=== PATIENT | female | born 1965 | race Two or more races ===

== ENCOUNTER 2023-06-28 22:47 | Inpatient (IN) ==
--- NOTE | 2023-06-28 23:04 | Emergency Department Note ---
History of Present Illness General Chief complaint: Knee Injury/Pain Stated complaint: R KNEE PAIN, DIZZINESS WHEN STANDING Time Seen by Provider: 06/28/23 22:53 History of Present Illness This 57-year-old female who states she is healthy with no active medical problems presents the ER complaining of fever, chills and right knee effusion. She states she has had the knee drained a year ago. It has been swollen for quite some time. She comes in now as the knee is more painful and she has a low-grade fever. Patient denies chest pain, dyspnea, cough, congestion, flulike illness, abdominal pain, vomiting, diarrhea, direct trauma, tick bites. She states she takes no active medications. [email or web address]. Home Medications Medication Instructions Recorded Confirmed Type No Known Home Medications 06/29/23 06/29/23 History Allergies Allergy/AdvReac Type Severity Reaction Status Date / Time No Known Allergies Allergy Unknown Verified 06/29/23 01:32 Past Med/Surg History Social History Smoking Status: Never smoker Hx Alcohol Use: No Hx Substance Use: No Communication Ability: Effective Communication Tools: Language Line Requirements Analyst Requirements Analyst Required: Yes Beliefs That Will Affect Care: Yazdanism Yazdanism Beliefs: Gnosticist Current Living Situation: Family Other Information That Helps Us Care for You: No Feels Safe at Home: Yes Safety Concerns: Feels Safe At This Time Assistive Devices: Crutches Review of Systems A total of 10 systems reviewed and were otherwise negative Physical Exam Vital Signs Vital Signs - 24 hr 06/28/23 22:41 06/28/23 22:41 06/28/23 22:59 Temperature 37.3 C Temperature Source Oral Pulse Rate 83 Pulse Rate [Apical] Pulse Rate from SpO2 Sensor Respiratory Rate 16 Respiratory Effort / Characteristics Non-Labored Non-Labored Respiratory Depth Normal Normal Respiratory Pattern Blood Pressure 119/78 Blood Pressure [Right Arm] Blood Pressure Mean 91 Blood Pressure Mean [Right Arm] Pulse Oximetry 98 98 Oxygen Delivery Method Room Air Room Air Oxygen Flow Rate Sepsis Recent Fever Within 48 Hours No Sepsis New/Unexplained Change in Mental Status No Sepsis Action Taken by Nursing No Action Required 06/28/23 22:59 06/28/23 23:00 06/28/23 23:00 Temperature Temperature Source Pulse Rate 88 83 Pulse Rate [Apical] Pulse Rate from SpO2 Sensor 88 83 Respiratory Rate 18 16 Respiratory Effort / Characteristics Respiratory Depth Respiratory Pattern Blood Pressure 119/78 Blood Pressure [Right Arm] Blood Pressure Mean 91 Blood Pressure Mean [Right Arm] Pulse Oximetry 96 97 Oxygen Delivery Method Oxygen Flow Rate Sepsis Recent Fever Within 48 Hours Sepsis New/Unexplained Change in Mental Status Sepsis Action Taken by Nursing 06/28/23 23:01 06/28/23 23:56 06/28/23 23:56 Temperature Temperature Source Pulse Rate 89 82 Pulse Rate [Apical] Pulse Rate from SpO2 Sensor 82 Respiratory Rate 16 Respiratory Effort / Characteristics Respiratory Depth Respiratory Pattern Blood Pressure 117/80 Blood Pressure [Right Arm] Blood Pressure Mean 97 Blood Pressure Mean [Right Arm] Pulse Oximetry 96 Oxygen Delivery Method Oxygen Flow Rate Sepsis Recent Fever Within 48 Hours Sepsis New/Unexplained Change in Mental Status Sepsis Action Taken by Nursing 06/29/23 00:00 06/29/23 00:00 06/29/23 00:14 Temperature Temperature Source Pulse Rate 82 Pulse Rate [Apical] Pulse Rate from SpO2 Sensor 81 Respiratory Rate 24 Respiratory Effort / Characteristics Non-Labored Respiratory Depth Normal Respiratory Pattern Blood Pressure 118/75 Blood Pressure [Right Arm] Blood Pressure Mean 89 Blood Pressure Mean [Right Arm] Pulse Oximetry 96 Oxygen Delivery Method Oxygen Flow Rate Sepsis Recent Fever Within 48 Hours Sepsis New/Unexplained Change in Mental Status Sepsis Action Taken by Nursing 06/29/23 01:00 06/29/23 01:45 06/29/23 01:45 Temperature Temperature Source Pulse Rate 60 Pulse Rate [Apical] 65 Pulse Rate from SpO2 Sensor 60 Respiratory Rate 16 23 Respiratory Effort / Characteristics Non-Labored Spontaneous Respiratory Depth Normal Respiratory Pattern Regular Blood Pressure 117/75 Blood Pressure [Right Arm] 117/75 Blood Pressure Mean 90 Blood Pressure Mean [Right Arm] 89 Pulse Oximetry 92 96 Oxygen Delivery Method Nasal Cannula Nasal Cannula Oxygen Flow Rate 2 2 Sepsis Recent Fever Within 48 Hours Sepsis New/Unexplained Change in Mental Status Sepsis Action Taken by Nursing 06/29/23 01:45 06/29/23 01:50 06/29/23 02:00 Temperature Temperature Source Pulse Rate 63 62 Pulse Rate [Apical] Pulse Rate from SpO2 Sensor 63 Respiratory Rate 14 Respiratory Effort / Characteristics Respiratory Depth Respiratory Pattern Blood Pressure 137/85 Blood Pressure [Right Arm] Blood Pressure Mean 92 Blood Pressure Mean [Right Arm] Pulse Oximetry 96 Oxygen Delivery Method Oxygen Flow Rate Sepsis Recent Fever Within 48 Hours Sepsis New/Unexplained Change in Mental Status Sepsis Action Taken by Nursing 06/29/23 02:00 06/29/23 03:00 06/29/23 03:15 Temperature Temperature Source Pulse Rate 77 76 Pulse Rate [Apical] Pulse Rate from SpO2 Sensor 79 76 Respiratory Rate 21 14 Respiratory Effort / Characteristics Non-Labored Respiratory Depth Normal Respiratory Pattern Blood Pressure Blood Pressure [Right Arm] Blood Pressure Mean Blood Pressure Mean [Right Arm] Pulse Oximetry 98 96 Oxygen Delivery Method Oxygen Flow Rate Sepsis Recent Fever Within 48 Hours Sepsis New/Unexplained Change in Mental Status Sepsis Action Taken by Nursing 06/29/23 04:00 06/29/23 04:00 06/29/23 04:00 Temperature Temperature Source Pulse Rate 72 Pulse Rate [Apical] Pulse Rate from SpO2 Sensor 72 Respiratory Rate 14 Respiratory Effort / Characteristics Non-Labored Respiratory Depth Normal Respiratory Pattern Blood Pressure 110/74 Blood Pressure [Right Arm] Blood Pressure Mean 92 Blood Pressure Mean [Right Arm] Pulse Oximetry 97 Oxygen Delivery Method Oxygen Flow Rate Sepsis Recent Fever Within 48 Hours Sepsis New/Unexplained Change in Mental Status Sepsis Action Taken by Nursing 06/29/23 04:25 06/29/23 04:26 Temperature Temperature Source Pulse Rate Pulse Rate [Apical] Pulse Rate from SpO2 Sensor Respiratory Rate Respiratory Effort / Characteristics Non-Labored Non-Labored Respiratory Depth Normal Normal Respiratory Pattern Blood Pressure Blood Pressure [Right Arm] Blood Pressure Mean Blood Pressure Mean [Right Arm] Pulse Oximetry Oxygen Delivery Method Oxygen Flow Rate Sepsis Recent Fever Within 48 Hours Sepsis New/Unexplained Change in Mental Status Sepsis Action Taken by Nursing VITALS: Vitals are noted on the nurse's note and reviewed by myself. Vital signs stable. GENERAL: Pleasant female, in no acute distress, nondiaphoretic, well-developed well-nourished. SKIN: Capillary reflex less than 2 seconds. HEENT: Normocephalic. PERRLA. EOMI. Nares patent. Mucous membranes moist. Neck is supple without nuchal rigidity. HEART: Regular rate and rhythm LUNGS: Clear to auscultation bilaterally without wheezes, rales or rhonchi. No retractions or accessory muscle use. ABDOMEN: Positive bowel sounds x 4. Normal tympanic percussion. Soft, nontender, without masses or organomegaly. Senior sign negative. No guarding or rebound tenderness. no CVA tenderness MUSCULOSKELETAL: No gross musculoskeletal defects. Right knee with effusion present with no signs of a septic joint. Increased pain with range of motion. No erythema. Pedal pulses +2 equal present bilaterally. NEURO: Patient was alert and oriented to person place and time. No focal neurological deficits. Procedures Joint Aspiration/Injection Joint Asp./Inject. 1: Time Out Performed: Yes Side of body: right Joint Aspirated: knee Ultrasound Guidance: No Skin Prep: Povidone-Iodine1% Local Anesthetic: lidocaine 1% Amount of anesthesia used (mL): 5 Needle Size Used: 18G Fluid Obtained: clear Total fluid obtained (mL): 120 Patient Tolerated Procedure: well and no complications Complications: none Course Administered Medications Discontinued Medications Sodium Chloride (Nss) 1,000 mls @ 999 mls/hr IV .Q1H1M JOYCE Stop: 06/29/23 00:00 Last Infusion: 06/29/23 00:16 Dose: Infused Documented By: Admin: 06/28/23 23:15 Dose: 999 mls/hr Documented By: LOPEZ Acetaminophen (Ofirmev) 1,000 mg in 100 mls @ 400 mls/hr IV NOW STA Stop: 06/28/23 23:13 Last Infusion: 06/28/23 23:30 Dose: Infused Documented By: Admin: 06/28/23 23:15 Dose: 400 mls/hr Documented By: LOPEZ Lidocaine HCl (Lidocaine 1% Local 20 Ml Vial) 5 ml INFIL NOW ONE Stop: 06/28/23 23:00 Last Admin: 06/28/23 23:53 Dose: 5 ml Documented By: LOPEZ Morphine Sulfate (Morphine Sulfate 4 Mg/Ml 1 Ml Carp\Vial) Confirm Administered Dose 4 mg .ROUTE .STK-MED ONE Stop: 06/28/23 23:50 Last Admin: 06/28/23 23:54 Dose: 4 mg Documented By: LOPEZ Morphine Sulfate (Morphine Sulfate 4 Mg/Ml 1 Ml Carp\Vial) 4 mg IV NOW STA Stop: 06/29/23 00:10 Last Admin: 06/29/23 00:20 Dose: Not Given Documented By: LOPEZ Morphine Sulfate (Morphine Sulfate 4 Mg/Ml 1 Ml Carp\Vial) 4 mg IV NOW STA Stop: 06/29/23 01:29 Last Admin: 06/29/23 01:36 Dose: 4 mg Documented By: LOPEZ Ondansetron HCl (Ondansetron Inj 2 Mg/Ml 2 Ml Vial) 4 mg IV NOW STA Stop: 06/29/23 00:10 Last Admin: 06/29/23 00:25 Dose: 4 mg Documented By: LOPEZ Medical Decision Making Medical Records Attestation: I reviewed the patient's medical records. Home Medications Current Medication List: was personally reviewed by me Laboratory Data Attestation: I reviewed the patient's lab results. 06/28/23 23:00 06/28/23 23:00 Lab Results 06/28/23 06/28/23 06/29/23 Range/Units 23:00 23:31 00:04 WBC 9.81 (4.8-10.8) K/ul RBC 4.81 (4.20-5.40) M/uL Hgb 13.9 (12.0-16.0) g/dl Hct 40.6 (37.0-47.0) % MCV 84.4 (80.0-100.0) fL MCH 28.9 (25.0-34.0) pg MCHC 34.2 (32.0-36.0) g/dL RDW Std Deviation 38.4 (36.4-46.3) fL RDW Coeff of Lisa 12.4 (11.5-14.5) % Plt Count 231 (130-400) K/uL MPV 10.6 (9.4-12.4) fL Immature Gran % (Auto) 0.1 % Neut % (Auto) 76.5 % Lymph % (Auto) 18.1 % Nobles % (Auto) 4.5 % Eos % (Auto) 0.2 % Baso % (Auto) 0.6 % Neut # (Auto) 7.50 H (1.40-6.50) K/uL Lymph # (Auto) 1.78 (1.20-3.40) K/uL Nobles # (Auto) 0.44 (0.11-0.59) K/uL Eos # (Auto) 0.02 (0.00-0.50) K/uL Baso # (Auto) 0.06 (0.00-0.20) K/uL Immature Gran # (Auto) 0.01 (0.01-0.20) K/uL ESR 21 (0-30) mm/hr Sodium 136 (136-145) mmol/L Potassium 3.6 (3.5-5.1) mmol/L Chloride 104 (98-107) mmol/L Carbon Dioxide 26 (21-32) mmol/L Anion Gap 6 (3-11) BUN 20 (6-23) mg/dl Creatinine 0.67 (0.6-1.2) mg/dl Est Cr Clr Drug Dosing 110.8 ml/min Est GFR ( Amer) 113.9 ml/min Est GFR (Non-Af Amer) 98.3 ml/min BUN/Creatinine Ratio 29.9 H (10-20) Glucose 121 H (70-99(Fasting)) mg/dl Lactate 0.8 (0.4-2.0) mmol/L Calcium 9.9 (8.6-10.3) mg/dl Magnesium 2.0 (1.7-2.4) mg/dl Total Bilirubin 0.6 (0.2-1.0) mg/dl Direct Bilirubin 0.1 (0-0.2) mg/dl AST 13 (13-39) U/L ALT 10 (7-52) U/L Alkaline Phosphatase 47 (34-104) U/L Troponin I High Sens < 2.3 (0-14) pg/ml C-Reactive Protein 0.53 H (0-0.5) mg/dl Total Protein 7.0 (6.0-8.3) gm/dl Albumin 4.1 (3.4-5.0) gm/dl Procalcitonin < 0.02 (0-0.5) ng/ml Fluid Comment Synovial Source Knee Synovial Color Straw Synovial Appearance Hazy Synovial WBC (Auto) 15059 H (0-200) /ul Synovial RBC (Auto) < 2000 /uL Synovial Polynuclear % 93.6 % Synovial Mononuclear % 6.4 % Synovial Crystals Lyme Disease Screen Negative (Negative) Imaging Data Attestation: I personally reviewed and interpreted this imaging study as follows: MDM Narrative Prior records/ancillary studies reviewed. Triage Nursing notes reviewed. Additional history obtained from family. The patient's history was concerning for knee effusion with fever. Differential diagnosis: Etiologies such as Lyme's, osteoarthritis of the knee, septic knee, gout, pseudogout, viral syndrome, otitis, pharyngitis, pneumonia, influenza, meningitis, urinary tract infection, sepsis, bacteremia, as well as others were entertained. Physical examination: As above ER treatment provided: An order was placed for continuous cardiac monitoring. The monitor shows a rate of 60-100 with a sinus rhythm per my interpretation. IV fluids, Tylenol On reassessment the patient felt better. Diagnostics interpreted by me: ECG: Ordered for weakness EKG: Normal sinus, normal intervals, no acute ST-T wave changes, impression normal sinus rhythm independent interpreted by myself The labs Independently Interpreted by myself revealed no organisms on Gram stain. Synovial fluid analysis was reviewed Blood cultures pending No worrisome leukocytosis Imaging studies: Knee x-ray with no acute fracture or dislocation. Effusion present per my independent interpretation Chest x-ray with no acute consolidation, pneumothorax or free air per my independent interpretation Consultation: A consultation was placed with orthopedics, Dr. Huerta. The case was discussed and diagnostics were reviewed. He recommends patient staying n.p.o. and till he sees the patient in the morning. He then asked to have pathology come in and read the crystal analysis on the patient. Pathology was consulted and did read the crystal analysis per request of orthopedics. Medicine is consulted case discussed. Patient be admitted to the medical service. The patient was evaluated in the ER for further treatment. This appears to be consistent with knee effusion with concerns for prior gout or pseudogout. Patient still with severe amount of pain. This is recurrent. Patient said the knee drained twice now. No overt signs of a septic joint. Knee Markell wrap was placed and neurovascular status was intact after placement as intact. Medicine was consulted along with orthopedics. She will be admitted to the medical service for further evaluation and workup as she was still moderate amount of pain. By the evaluation outlined above emergent etiologies such as otitis, pharyngitis, pneumonia, meningitis, urinary tract infection, sepsis, bacteremia, as well as others were deemed relatively unlikely. The pt informed about the findings as listed above. All questions were answered and pleased with the treatment. The chart was completed utilizing [employer] Speech voice recognition software. Grammatical errors, random word insertions, pronoun errors, and incomplete sentences are an occassional consequence of this system due to software limitations, ambient noise, and hardware issues. Any formal questions or concerns about the content, text, or information contained within the body of this dictation should be directly addressed to the physician chemistry research assistant for clarification. Impression & Plan Effusion of right knee Discharge Plan Visit Data Chief Complaint: Knee Injury/Pain Stated Complaint: R KNEE PAIN, DIZZINESS WHEN STANDING ED Provider: Francine Craven ED Midlevel Provider: Racquel Plata Discharge Problem: Effusion of right knee Patient Disposition: Being Evaluated by Hospitalist Condition: Good Discharge Instructions Krames/Other Patient Handouts: ED Knee Effusion Activity Restrictions/Additional Instructions: DO NOT drive, drink alcohol, operate machinery, or perform dangerous activities today. You were given medications in the ER that can affect your ability to safely function or operate a vehicle. Oxycodone (OxyIR) 5mg: Take 1 pill every four hours for breakthrough pain. Avoid alcohol, operating machinery or dangerous equipment, working on ladders or roofs, DRIVING, or situations where being under the influence may be dangerous. It is recommended to use an [id number] stool softener such as Colace, 100mg twice daily while taking this medication to avoid constipation. Ibuprofen(Motrin, Advil) may be used for fever or pain. Use 600mg every six hours as needed. Take with food. Avoid using more than 2400mg in a 24 hour period. Do not use 2400mg per day for more than three consecutive days without physician direction. Prolonged inappropriate use can lead to stomach upset or ulcers. This medication can be taken if you need to drive, work, or perform activities which may be dangerous when taking narcotic pain medication. (AND/OR) Acetaminophen(Tylenol) may be used for fever or pain. Use 1000mg every six hours as needed. Avoid using more than 3000mg in a 24 hour period. This medication can be taken if you need to drive, work, or perform activities which may be dangerous when taking narcotic pain medication. Wearing the Markell wrap until cleared by orthopedics. Do not put so tight they cannot feel your toes. Use the crutches as instructed. Rest and elevate your injury. Continue current medications. Return to the ER immediately for any numbness, tingling, severe pain, extreme swelling in the extremity or as needed. Call your Orthopedics tomorrow to arrange follow up for your injury. Forms Stand Alone Forms: Work/School Release (ED), Important Visit Information Prescriptions Prescriptions: No Action No Known Home Medications Referrals Referrals: Nickie Victor [Outside Practitioners] - Tray Lyle MD [Physician] -
[2023-06-28] MEDS: ACETAMINOPHEN 1,000 MG/100 ML VIAL IV STA (23:15)
[2023-06-28] MEDS: SODIUM CHLORIDE 0.9% 1,000 ML IV SCH (23:15)
[2023-06-28 23:35] LABS: Basophils # (auto) 0.06 K/uL (0.00-0.20); Basophils % (auto) 0.6 %; Eosinophils # (auto) 0.02 K/uL (0.00-0.50); Eosinophils % (auto) 0.2 %; Hematocrit (blood only) 40.6 % (37.0-47.0); Hemoglobin 13.9 g/dl (12.0-16.0); Immature Granulocytes # (auto) 0.01 K/uL (0.01-0.20); Immature Granulocytes % (auto) 0.1 %; Lymphocytes # (auto) 1.78 K/uL (1.20-3.40); Lymphocytes % (auto) 18.1 %; Mean Corpuscular Hemoglobin 28.9 pg (25.0-34.0); Mean Corpuscular Hgb Conc 34.2 g/dL (32.0-36.0); Mean Corpuscular Volume 84.4 fL (80.0-100.0); Mean Platelet Volume 10.6 fL (9.4-12.4); Monocytes # (auto) 0.44 K/uL (0.11-0.59); Monocytes % (auto) 4.5 %; Neutrophils % (auto) 76.5 %; Platelet Count 231 K/uL (130-400); RDW Coefficient of Variation 12.4 % (11.5-14.5); RDW Standard Deviation 38.4 fL (36.4-46.3); Red Blood Count 4.81 M/uL (4.20-5.40); White Blood Count 9.81 K/ul (4.8-10.8)
[2023-06-28 23:51] LABS: Alanine Aminotransferase 10 U/L (7-52); Albumin Level 4.1 gm/dl (3.4-5.0); Alkaline Phosphatase 47 U/L (34-104); Anion Gap 6 (3-11); Aspartate Aminotransferase 13 U/L (13-39); BUN Creatinine Ratio 29.9 (10-20); Bilirubin Direct 0.1 mg/dl (0-0.2); Bilirubin,Total 0.6 mg/dl (0.2-1.0); Blood Urea Nitrogen 20 mg/dl (6-23); Calcium 9.9 mg/dl (8.6-10.3); Carbon Dioxide 26 mmol/L (21-32); Chloride 104 mmol/L (98-107); Creatinine Clr Calc Pharmacy 110.8 ml/min; Est GFR (African American) 113.9 ml/min; Est GFR (Non-African American) 98.3 ml/min; Glucose 121 mg/dl (70-99(Fasting)); Potassium 3.6 mmol/L (3.5-5.1); Sodium 136 mmol/L (136-145)
[2023-06-28] MEDS: LIDOCAINE 1% LOCAL 20 ML VIAL INFIL ONE (23:53)
[2023-06-28] MEDS: MoRPHine SULFATE 4 MG/ML 1 ML CARP\\VIAL ONE (23:54)
[2023-06-28 23:56] LABS: Troponin I High Sensitivity < 2.3 pg/ml (0-14)
[2023-06-29] MEDS: MoRPHine SULFATE 4 MG/ML 1 ML CARP\\VIAL IV STA ×2 (00:20→01:36)
[2023-06-29 00:22] LABS: Procalcitonin < 0.02 ng/ml (0-0.5)
[2023-06-29] MEDS: ONDANSETRON INJ 2 MG/ML 2 ML VIAL IV STA (00:25)
[2023-06-29 00:48] LABS: Lyme Screen Rflx Confirmation Negative (Negative)
[2023-06-29 00:57] LABS: Appearance Synovial Fluid Hazy; Color Synovial Fluid Straw; Mononuclear WBC Synovial 6.4 %; Polynuclear WBC Synovial 93.6 %; RBC Synovial Fluid Auto < 2000 /uL; Source Synovial Fluid Knee; WBC Synovial Fluid Auto 24498 /ul (0-200)
[2023-06-29 01:35] LABS: C Reactive Protein 0.53 mg/dl (0-0.5)
--- NOTE | 2023-06-29 05:14 | History & Physical Report ---
Date of Service June 29, 2023 Assessment & Plan (1) Effusion of right knee: Plan: 57-year-old female with past med history significant for prediabetes, seasonal allergic rhinitis, history of COVID presents with right knee pain and swelling. Patient's states having swelling in the right knee for some time and pain for some time but it got worse. She is fasting for Ramadan. She was feeling dizzy. She was having low-grade fever and chills. Not feeling well. A lot of pain. Hemodynamics are okay. Denies any headache. No runny nose or sore throat. No cough. No chest pain or shortness of breath. No nausea. No abdominal pain. Normal bowel and bladder movements. Right knee pain Knee effusion S/p arthrocentesis by ER synovial fluid WBC 24 K Infectious versus inflammatory IV Rocephin N.p.o., IV Dilaudid as needed, IV fluids Ortho consult Prediabetes Will follow HbA1c DVT prophylaxis SCD's on left lower extremity. Lovenox or heparin subcu after seen by Ortho History of Present Illness Chief Complaint: Right knee pain Primary Care Provider: Nusrat Floyd, 57-year-old female with past med history significant for prediabetes, seasonal allergic rhinitis, history of COVID presents with right knee pain and swelling. Patient's states having swelling in the right knee for some time and pain for some time but it got worse. She is fasting for Ramadan. She was feeling dizzy. She was having low-grade fever and chills. Not feeling well. A lot of pain. Hemodynamics are okay. Denies any headache. No runny nose or sore throat. No cough. No chest pain or shortness of breath. No nausea. No abdominal pain. Normal bowel and bladder movements. Past medical history. As mentioned above Past surgical history. Biopsy of lymph node upper jaw. Vein ablation extremity Social history. . No smoking. No alcohol use. No drug use. Family history. Brother had coronary disease. Hypertension. Allergies Allergy/AdvReac Type Severity Reaction Status Date / Time No Known Allergies Allergy Unknown Verified 06/29/23 01:32 Home Medications Medication Instructions Recorded Confirmed Type No Known Home Medications 06/29/23 06/29/23 History Past Med/Surg History Social History Smoking Status: Never smoker Hx Alcohol Use: No Hx Substance Use: No Communication Ability: Effective Communication Tools: Language Line Scales Inspector Scales Inspector Required: Yes Beliefs That Will Affect Care: Caodaism Caodaism Beliefs: Nondenominational Current Living Situation: Family Other Information That Helps Us Care for You: No Feels Safe at Home: Yes Safety Concerns: Feels Safe At This Time Assistive Devices: Crutches Review of Systems Review of Systems: All systems reviewed & are unremarkable except as noted in HPI & below Physical Exam Physical Exam: General- Not in distress Head- atraumatic Eyes- PERRL. ENT- oropharynx clear Neck- supple, no JVD. Lungs- clear to auscultation no wheezing or crackles. Heart- regular rhythm; no murmur, no gallop. Abdomen- normal bowel sounds, soft, nontender, no distension Extremities- Right knee in dressing. Neuro- alert, oriented PERRL, no facial palsy; no dysarthria; Results & Data Results & Data Vital Signs (Past 12 Hours) Vital Signs Temp Pulse Pulse Resp BP BP Pulse Ox 06/29/23 04:00 110/74 06/29/23 04:00 72 14 97 06/29/23 03:00 76 14 96 06/29/23 02:00 77 21 98 06/29/23 02:00 137/85 06/29/23 01:50 62 06/29/23 01:45 63 14 96 06/29/23 01:45 117/75 06/29/23 01:45 65 23 117/75 96 06/29/23 01:00 60 16 92 06/29/23 00:00 118/75 06/29/23 00:00 82 24 96 06/28/23 23:56 82 16 96 06/28/23 23:56 117/80 06/28/23 23:01 89 06/28/23 23:00 119/78 06/28/23 23:00 83 16 97 06/28/23 22:59 88 18 96 06/28/23 22:59 98 06/28/23 22:41 37.3 C 83 16 119/78 98 O2 Del Method O2 Flow Rate 06/29/23 04:00 06/29/23 04:00 06/29/23 03:00 06/29/23 02:00 06/29/23 02:00 06/29/23 01:50 06/29/23 01:45 06/29/23 01:45 Nasal Cannula 2 06/29/23 01:45 Nasal Cannula 2 06/29/23 01:00 06/29/23 00:00 06/29/23 00:00 06/28/23 23:56 06/28/23 23:56 06/28/23 23:01 06/28/23 23:00 06/28/23 23:00 06/28/23 22:59 06/28/23 22:59 Room Air 06/28/23 22:41 Room Air Diagnostic Findings Laboratory Results WBC 9.81 K/ul (4.8-10.8) 06/28/23 23:00 RBC 4.81 M/uL (4.20-5.40) 06/28/23 23:00 Hgb 13.9 g/dl (12.0-16.0) 06/28/23 23:00 Hct 40.6 % (37.0-47.0) 06/28/23 23:00 MCV 84.4 fL (80.0-100.0) 06/28/23 23:00 MCH 28.9 pg (25.0-34.0) 06/28/23 23:00 MCHC 34.2 g/dL (32.0-36.0) 06/28/23 23:00 RDW Std Deviation 38.4 fL (36.4-46.3) 06/28/23 23:00 RDW Coeff of Lisa 12.4 % (11.5-14.5) 06/28/23 23:00 Plt Count 231 K/uL (130-400) 06/28/23 23:00 MPV 10.6 fL (9.4-12.4) 06/28/23 23:00 Immature Gran % (Auto) 0.1 % 06/28/23 23:00 Neut % (Auto) 76.5 % 06/28/23 23:00 Lymph % (Auto) 18.1 % 06/28/23 23:00 [place] % (Auto) 4.5 % 06/28/23 23:00 Eos % (Auto) 0.2 % 06/28/23 23:00 Baso % (Auto) 0.6 % 06/28/23 23:00 Neut # (Auto) 7.50 K/uL (1.40-6.50) H 06/28/23 23:00 Lymph # (Auto) 1.78 K/uL (1.20-3.40) 06/28/23 23:00 [place] # (Auto) 0.44 K/uL (0.11-0.59) 06/28/23 23:00 Eos # (Auto) 0.02 K/uL (0.00-0.50) 06/28/23 23:00 Baso # (Auto) 0.06 K/uL (0.00-0.20) 06/28/23 23:00 Immature Gran # (Auto) 0.01 K/uL (0.01-0.20) 06/28/23 23:00 ESR 21 mm/hr (0-30) 06/28/23 23:00 Sodium 136 mmol/L (136-145) 06/28/23 23:00 Potassium 3.6 mmol/L (3.5-5.1) 06/28/23 23:00 Chloride 104 mmol/L (98-107) 06/28/23 23:00 Carbon Dioxide 26 mmol/L (21-32) 06/28/23 23:00 Anion Gap 6 (3-11) 06/28/23 23:00 BUN 20 mg/dl (6-23) 06/28/23 23:00 Creatinine 0.67 mg/dl (0.6-1.2) 06/28/23 23:00 Est Cr Clr Drug Dosing 110.8 ml/min 06/28/23 23:00 Est GFR ( Amer) 113.9 ml/min 06/28/23 23:00 Est GFR (Non-Af Amer) 98.3 ml/min 06/28/23 23:00 BUN/Creatinine Ratio 29.9 (10-20) H 06/28/23 23:00 Glucose 121 mg/dl (70-99(Fasting)) H 06/28/23 23:00 Lactate 0.8 mmol/L (0.4-2.0) 06/28/23 23:31 Calcium 9.9 mg/dl (8.6-10.3) 06/28/23 23:00 Magnesium 2.0 mg/dl (1.7-2.4) 06/28/23 23:00 Total Bilirubin 0.6 mg/dl (0.2-1.0) 06/28/23 23:00 Direct Bilirubin 0.1 mg/dl (0-0.2) 06/28/23 23:00 AST 13 U/L (13-39) 06/28/23 23:00 ALT 10 U/L (7-52) 06/28/23 23:00 Alkaline Phosphatase 47 U/L (34-104) 06/28/23 23:00 Troponin I High Sens < 2.3 pg/ml (0-14) 06/28/23 23:00 C-Reactive Protein 0.53 mg/dl (0-0.5) H 06/28/23 23:00 Total Protein 7.0 gm/dl (6.0-8.3) 06/28/23 23:00 Albumin 4.1 gm/dl (3.4-5.0) 06/28/23 23:00 Procalcitonin < 0.02 ng/ml (0-0.5) 06/28/23 23:00 Fluid Comment 06/29/23 00:04 Synovial Source Knee 06/29/23 00:04 Synovial Color Straw 06/29/23 00:04 Synovial Appearance Hazy 06/29/23 00:04 Synovial WBC (Auto) 82351 /ul (0-200) H 06/29/23 00:04 Synovial RBC (Auto) < 2000 /uL 06/29/23 00:04 Synovial Polynuclear % 93.6 % 06/29/23 00:04 Synovial Mononuclear % 6.4 % 06/29/23 00:04 Synovial Crystals 06/29/23 00:04 Lyme Disease Screen Negative (Negative) 06/28/23 23:00 ECG Additional Comments: EKG. Normal sinus rhythm rate of 84. No significant change was found. Code Status & VTE Plan VTE Prophylaxis Plan VTE Prophylaxis will be ordered: Yes
--- NOTE | 2023-06-29 05:16 | Orthopedic Consultation ---
Date of Consultation June 29, 2023 Assessment & Plan (1) Effusion of right knee: Discussed my impression with the patient. Her clinical exam is not consistent with a septic knee. Her picture is more consistent with an arthritis exacerbation causing the effusion and increased pain. While her PMN percentage is elevated, typically a synovial fluid count of 25,000 is not consistent with an infection. Crystal analysis was negative. At this point I would like to have her admitted to the medical service for pain control and monitoring. Recommend anti-inflammatory medications for her arthritis. Do not think she needs surgery right this minute, however I do think we need to keep her n.p.o. until we have her preliminary cultures back. If her cultures grow something then she will need an arthroscopic or open irrigation and debridement. Patient expressed a preference to not have surgery, but un derstands that this may be necessary. Might consider advanced imaging if she continues to have significant pain with negative culture results. Discussed with the patient that I am heading out of town later this morning, but I will contact with my partner, Dr. Cramer, who will assume her orthopedic care in my absence. (2) Arthritis of right knee: History of Present Illness Reason for Consultation: Right knee pain History of Present Illness 57-year-old female, presented to the ER last night with severe right knee pain. She reports she has had pain in this knee for over 1 year. However the pain is worsened in the last week. Yesterday pain was worse to the point where she had difficulty weightbearing and developed swelling in the knee. She was brought to the emergency room. X-rays were obtained and her knee was tapped. Orthopedics was consulted for evaluation of her right knee. Patient seen and examined in the emergency room. Denies any fevers or chills. She did receive some ibuprofen since coming to the emergency room. She says her knee is feeling better after this. She denies any recent infections. Denies numbness or tingling down her leg. She is Nondenominational, currently in the middle of Ramadan, therefore not eating anything during daylight hours. The last time she ate was yesterday for breakfast. After yesterday she felt like she had no appetite so has not had anything to eat since yesterday for breakfast. Allergies Allergy/AdvReac Type Severity Reaction Status Date / Time No Known Allergies Allergy Unknown Verified 03/28/24 01:32 Home Medications Medication Instructions Recorded Confirmed Type No Known Home Medications 06/29/23 06/29/23 History Patient History Social History Smoking Status: Never smoker Hx Alcohol Use: No Hx Substance Use: No Communication Ability: Effective Communication Tools: Language Line Sandwich Maker Sandwich Maker Required: Yes Beliefs That Will Affect Care: Shinto Shinto Beliefs: Nondenominational Current Living Situation: Family Other Information That Helps Us Care for You: No Feels Safe at Home: Yes Safety Concerns: Feels Safe At This Time Assistive Devices: Crutches Physical Exam Physical Exam: In general she is Bole lying in bed in no acute distress. Alert and oriented x 3. Right knee exam reveals the patient to have a 1+ effusion. There is no redness or warmth about the knee. She has maximally tender along the lateral facet of the patella. Also has some moderate lateral joint line tenderness. No medial joint line tenderness. No tenderness palpation over the synovium in the suprapatellar pouch. She is able to do a straight leg raise. Her active range of motion is from 10 degrees to 70 degrees. Passively I can get her from 5 degrees to 80 degrees arc of motion with no pain through this arc of motion. She does have pain trying to extend her past 5 degrees or flex beyond 85 degrees. She able to wiggle her toes and fire ankle dorsiflexors and plantar flexors. She has palpable dorsalis pedis and posterior tibial pulses. She reports sensation intact to moving light touch over the entirety of her right lower extremity. Results & Data Vital Signs (Past 12 Hours) Vital Signs Temp Pulse Pulse Resp BP BP Pulse Ox 06/29/23 04:00 110/74 06/29/23 04:00 72 14 97 06/29/23 03:00 76 14 96 06/29/23 02:00 77 21 98 06/29/23 02:00 137/85 06/29/23 01:50 62 06/29/23 01:45 63 14 96 06/29/23 01:45 117/75 06/29/23 01:45 65 23 117/75 96 06/29/23 01:00 60 16 92 06/29/23 00:00 118/75 06/29/23 00:00 82 24 96 06/28/23 23:56 82 16 96 06/28/23 23:56 117/80 06/28/23 23:01 89 06/28/23 23:00 119/78 06/28/23 23:00 83 16 97 06/28/23 22:59 88 18 96 06/28/23 22:59 98 06/28/23 22:41 37.3 C 83 16 119/78 98 O2 Del Method O2 Flow Rate 06/29/23 04:00 06/29/23 04:00 06/29/23 03:00 06/29/23 02:00 06/29/23 02:00 06/29/23 01:50 06/29/23 01:45 06/29/23 01:45 Nasal Cannula 2 06/29/23 01:45 Nasal Cannula 2 06/29/23 01:00 06/29/23 00:00 06/29/23 00:00 06/28/23 23:56 06/28/23 23:56 06/28/23 23:01 06/28/23 23:00 06/28/23 23:00 06/28/23 22:59 06/28/23 22:59 Room Air 06/28/23 22:41 Room Air Laboratory Results Synovial fluid analysis showed 25,000 white cells with 93% polys. Crystal analysis was negative for crystals. White count was normal at 9.8. Temperature was normal at 37.3. ESR normal at 21. CRP P just slightly elevated at 0.53 (normal is 0.5). Diagnostic Findings X-rays done of her right knee 2 views, done today are reviewed. She has significant arthritis in her patellofemoral joint. Moderate arthritis in the tibiofemoral joint. No fractures.
--- NOTE | 2023-06-29 07:12 | XRay Report ---
XR chest 1V portable HISTORY: Sepsis COMPARISON: None. FINDINGS: The lungs are clear. Cardiac silhouette is normal in size. No pleural effusions. No pneumot horax. IMPRESSION: No acute process. ACT 112: Negative or not required by law. Electronically signed by: Minesh Calderón M.D. 06/29/2023 7:10 AM
--- NOTE | 2023-06-29 07:15 | XRay Report ---
XR knee RT 1 or 2V routine CLINICAL HISTORY: Right knee pain and swelling. COMPARISON: None FINDINGS: Alignment of the right knee is anatomic. There is no acute fracture. There are no osseous lesions. A moderate size joint effusion is present. There is lateral compartment osteophytosis. Garg lofemoral compartment joint space narrowing with osteophytosis is noted. IMPRESSION: 1. No acute fracture within the right knee. 2. Moderate size joint effusion. 3. Moderate patellofemoral compartment osteoarthritis. ACT 112: Negative or not required by law. Electronically signed by: Robert Gonzáles M.D. 06/29/2023 7:14 AM
[2023-06-29] MEDS ORDERED: POLYETHYLENE (MIRALAX) 17 GM PACK PO PRN (10:02)
[2023-06-29 10:25] LABS: Basophils # (auto) 0.04 K/uL (0.00-0.20); Basophils % (auto) 0.5 %; Eosinophils # (auto) 0.05 K/uL (0.00-0.50); Eosinophils % (auto) 0.6 %; Hematocrit (blood only) 40.4 % (37.0-47.0); Hemoglobin 13.2 g/dl (12.0-16.0); Immature Granulocytes # (auto) 0.01 K/uL (0.01-0.20); Immature Granulocytes % (auto) 0.1 %; Lymphocytes # (auto) 2.14 K/uL (1.20-3.40); Lymphocytes % (auto) 27.6 %; Mean Corpuscular Hemoglobin 28.4 pg (25.0-34.0); Mean Corpuscular Hgb Conc 32.7 g/dL (32.0-36.0); Mean Corpuscular Volume 87.1 fL (80.0-100.0); Monocytes # (auto) 0.51 K/uL (0.11-0.59); Monocytes % (auto) 6.6 %; Neutrophils % (auto) 64.6 %; Platelet Count 202 K/uL (130-400); RDW Coefficient of Variation 12.6 % (11.5-14.5); RDW Standard Deviation 39.8 fL (36.4-46.3); Red Blood Count 4.64 M/uL (4.20-5.40); White Blood Count 7.75 K/ul (4.8-10.8)
[2023-06-29] MEDS: SODIUM CHLORIDE 0.9% 1,000 ML IV SCH (10:31)
[2023-06-29 10:37] LABS: Estimated Average Glucose 120 mg/dl; Hemoglobin A1C 5.8 % (4.5-5.6)
[2023-06-29] MEDS: HYDROmorphone INJ 0.5 MG/0.5 ML SYR IV PRN (10:47)
[2023-06-29] MEDS: ONDANSETRON INJ 2 MG/ML 2 ML VIAL IV PRN (10:47)
[2023-06-29 10:48] LABS: BUN Creatinine Ratio 27.8 (10-20); Calcium 9.3 mg/dl (8.6-10.3); Creatinine Clr Calc Pharmacy 137.4 ml/min; Est GFR (African American) 122.3 ml/min; Est GFR (Non-African American) 105.5 ml/min; Potassium 3.8 mmol/L (3.5-5.1)
[2023-06-29] MEDS: cefTRIAXone SODIUM 2,000 MG in DEXTROSE 5 % MINI-B 50 ML IV SCH (11:14)
--- NOTE | 2023-06-29 12:24 | Electrocardiogram Report ---
Test Reason : Blood Pressure : / mmHG Vent. Rate : 084 BPM Atrial Rate : 084 BPM P-R Int : 176 ms QRS Dur : 072 ms QT Int : 360 ms P-R-T Axes : 058 009 045 degrees QTc Int : 425 ms Normal sinus rhythm Normal ECG When compared with ECG of 14-AUG-2013 20:04, No significant change was found Confirmed by Narendra Noyola ([id number]) on 06/29/2023 12:24:23 PM Referred By: REFERRED SELF Confirmed By:Narendra Noyola
[2023-06-29] MEDS: predniSONE 20 MG TAB PO SCH (13:56)
--- NOTE | 2023-06-29 15:40 | Hospitalist Progress Note ---
Date of Service June 29, 2023 Assessment & Plan (1) Effusion of right knee: Plan: 57-year-old female with past med history significant for prediabetes, seasonal allergic rhinitis, history of COVID presents with right knee pain and swelling. Patient's states having swelling in the right knee for some time and pain for some time but it got worse. She is fasting for Ramadan. She was feeling dizzy. She was having low-grade fever and chills. Not feeling well. A lot of pain. Hemodynamics are okay. Denies any headache. No runny nose or sore throat. No cough. No chest pain or shortness of breath. No nausea. No abdominal pain. Normal bowel and bladder movements. Right knee pain Right Knee effusion S/p arthrocentesis in ED --R knee X ray:No acute fracture within the right knee. Moderate size joint effusion. Moderate patellofemoral compartment osteoarthritis. Clinically not consistent with septic knee Likely right knee arthritis exacerbation with effusion Synovitic fluid studies reviewed Appreciate orthopedics input Started on prednisone Continue PT OT Follow-up synovial fluid cultures If synovial fluid culture positive, then likely will need arthroscopic or open irrigation of the joint with debridement On IV Rocephin empirically Nausea and vomiting Likely secondary to pain Will consider imaging if needed Antiemetics as needed Advance diet as tolerated Prediabetes HbA1c 5.8 DVT Px: SCD's for now CODE STATUS Full code Admission and Anticipated Discharge Date Admission Date: June 29, 2023 Subjective Patient is seen and examined at bedside States having nausea associated with vomiting Also reports right knee pain Offers no other complaints Discussed with patient's family at bedside Review of Systems Review of Systems: All systems reviewed & are unremarkable except as noted in Subjective Physical Exam Physical Exam: Physical Exam: Vitals signs as noted above General Appearance:Moderately built and nourished, no apparent distress Head: normocephalic, Atraumatic Eyes: normal inspection, EOMI Neck: supple, Trachea midline Respiratory/Chest: Normal breath sounds, CTA, No accessory muscle use Cardiovascular: S1, S2, No murmur Abdomen/GI:Soft, Non tender, Bowel sounds present Extremities/Musculoskeletal:normal inspection, R knee tender along the lateral aspect and joint line tenderness, no swelling, erythema Neurologic/Psych:AAOX3, grossly no focal neurological deficits Skin: normal color, warm Results & Data Results & Data Vital Signs (Past 12 Hours) Vital Signs Temp Pulse Pulse Resp BP BP Pulse Ox 06/29/23 10:02 36.7 C 93 H 20 150/97 H 99 06/29/23 08:44 66 20 133/85 98 06/29/23 08:04 66 06/29/23 05:49 37.5 C 06/29/23 05:47 66 06/29/23 05:00 59 L 13 98 06/29/23 04:00 110/74 06/29/23 04:00 72 14 97 O2 Del Method O2 Flow Rate 06/29/23 10:02 Nasal Cannula 2 06/29/23 08:44 Room Air 06/29/23 08:04 06/29/23 05:49 06/29/23 05:47 06/29/23 05:00 06/29/23 04:00 06/29/23 04:00 Laboratory Results Short CBC 06/28/23 06/29/23 Range/Units 23:00 10:08 WBC 9.81 7.75 (4.8-10.8) K/ul Hgb 13.9 13.2 (12.0-16.0) g/dl Hct 40.6 40.4 (37.0-47.0) % Plt Count 231 202 (130-400) K/uL BMP 06/28/23 06/29/23 23:00 10:08 Sodium 136 138 Potassium 3.6 3.8 Chloride 104 107 Carbon Dioxide 26 27 BUN 20 15 Creatinine 0.67 0.54 L Glucose 121 H 117 H Calcium 9.9 9.3 Liver Function 06/28/23 Range/Units 23:00 Total Bilirubin 0.6 (0.2-1.0) mg/dl Direct Bilirubin 0.1 (0-0.2) mg/dl AST 13 (13-39) U/L ALT 10 (7-52) U/L Alkaline Phosphatase 47 (34-104) U/L Albumin 4.1 (3.4-5.0) gm/dl
[2023-06-29 16:13] LABS: Appearance Urine Clear (Clear); Bilirubin Urine Negative (Negative); Blood Urine Negative (Negative); Color Urine Dark Yellow; Glucose Urine UA Negative (Negative); Ketones Urine Trace (Negative); Leukocyte Esterase Urine Negative (Negative); Nitrite Urine Negative (Negative); Protein Urine Negative (Negative); Specific Gravity Urine 1.025 (1.000-1.030); Urobilinogen Urine Negative (Negative)
--- NOTE | 2023-06-29 17:05 | Orthopedic Progress Note ---
Date of Service June 29, 2023 Assessment & Plan (1) Effusion of right knee: Plan: Crystal analysis was negative. WBC count within the fluid was approximately 25,000 consistent with inflammation. Cultures are pending. Lyme test was negative with repeat pending. Discussed plan and findings. N.p.o. after midnight in case cultures turn positive with doing arthroscopic I&D of the knee. I suspect that this is likely an arthritic flareup with knee effusion. She reports having this happen at least 2 times in the past. Once in [place] and once treated at [facility]. She reports being treated with a strong medicine which could have been an antibiotic but very well may have been an anti-inflammatory. If cultures are negative then may consider knee aspiration and corticosteroid injection. WBC normal. Inflammatory markers normal or minimally elevated. (2) Arthritis of right knee: Admission and Anticipated Discharge Date Admission Date: June 29, 2023 Subjective The patient reports improvement of her pain although her knee remains swollen. Physical Exam Physical Exam: She has a large right knee effusion with minimal increased warmth and no erythema. There is tenderness to palpation over the patella and patellar tendon junction. No induration. Her knee range of motion is 0-90. She is unable to do a leg lift. Results & Data Vital Signs (Past 12 Hours) Vital Signs Temp Pulse Pulse Resp BP BP Pulse Ox 06/29/23 15:57 36.6 C 65 16 105/74 100 06/29/23 10:02 36.7 C 93 H 20 150/97 H 99 06/29/23 08:44 66 20 133/85 98 06/29/23 08:04 66 06/29/23 05:49 37.5 C 06/29/23 05:47 66 O2 Del Method O2 Flow Rate 06/29/23 15:57 Room Air 06/29/23 10:02 Nasal Cannula 2 06/29/23 08:44 Room Air 06/29/23 08:04 06/29/23 05:49 06/29/23 05:47 Laboratory Results 06/29/23 06/29/23 06/29/23 Range/Units Unknown 10:08 00:04 WBC 7.75 (4.8-10.8) K/ul RBC 4.64 (4.20-5.40) M/uL Hgb 13.2 (12.0-16.0) g/dl Hct 40.4 (37.0-47.0) % MCV 87.1 (80.0-100.0) fL MCH 28.4 (25.0-34.0) pg MCHC 32.7 (32.0-36.0) g/dL RDW Std Deviation 39.8 (36.4-46.3) fL RDW Coeff of Lisa 12.6 (11.5-14.5) % Plt Count 202 (130-400) K/uL MPV 10.0 (9.4-12.4) fL Immature Gran % (Auto) 0.1 % Neut % (Auto) 64.6 % Lymph % (Auto) 27.6 % [place] % (Auto) 6.6 % Eos % (Auto) 0.6 % Baso % (Auto) 0.5 % Neut # (Auto) 5.00 (1.40-6.50) K/uL Lymph # (Auto) 2.14 (1.20-3.40) K/uL [place] # (Auto) 0.51 (0.11-0.59) K/uL Eos # (Auto) 0.05 (0.00-0.50) K/uL Baso # (Auto) 0.04 (0.00-0.20) K/uL Immature Gran # (Auto) 0.01 (0.01-0.20) K/uL ESR (0-30) mm/hr Sodium 138 (136-145) mmol/L Potassium 3.8 (3.5-5.1) mmol/L Chloride 107 (98-107) mmol/L Carbon Dioxide 27 (21-32) mmol/L Anion Gap 4 (3-11) BUN 15 (6-23) mg/dl Creatinine 0.54 L (0.6-1.2) mg/dl Est Cr Clr Drug Dosing 137.4 ml/min Est GFR ( Amer) 122.3 ml/min Est GFR (Non-Af Amer) 105.5 ml/min BUN/Creatinine Ratio 27.8 H (10-20) Glucose 117 H (70-99(Fasting)) mg/dl Estimat Average Glucose 120 mg/dl Hemoglobin A1c 5.8 H (4.5-5.6) % Lactate (0.4-2.0) mmol/L Calcium 9.3 (8.6-10.3) mg/dl Magnesium 2.0 (1.7-2.4) mg/dl Total Bilirubin (0.2-1.0) mg/dl Direct Bilirubin (0-0.2) mg/dl AST (13-39) U/L ALT (7-52) U/L Alkaline Phosphatase (34-104) U/L Troponin I High Sens (0-14) pg/ml C-Reactive Protein (0-0.5) mg/dl Total Protein (6.0-8.3) gm/dl Albumin (3.4-5.0) gm/dl Procalcitonin (0-0.5) ng/ml Urine Color Dark Yellow Urine Appearance Clear (Clear) Urine pH 6.0 (4.5-7.5) Ur Specific [place] 1.025 (1.000-1.030) Urine Protein Negative (Negative) Urine Glucose (UA) Negative (Negative) Urine Ketones Trace H (Negative) Urine Blood Negative (Negative) Urine Nitrite Negative (Negative) Urine Bilirubin Negative (Negative) Urine Urobilinogen Negative (Negative) Ur Leukocyte Esterase Negative (Negative) Fld Lyme DNA (PCR) Pending Fluid Comment Synovial Source Knee Synovial Color Straw Synovial Appearance Hazy Synovial WBC (Auto) 19151 H (0-200) /ul Synovial RBC (Auto) < 2000 /uL Synovial Polynuclear % 93.6 % Synovial Mononuclear % 6.4 % Synovial Crystals Lyme Specimen Source Pending Lyme Disease Screen (Negative) 06/28/23 06/28/23 Range/Units 23:31 23:00 WBC 9.81 (4.8-10.8) K/ul RBC 4.81 (4.20-5.40) M/uL Hgb 13.9 (12.0-16.0) g/dl Hct 40.6 (37.0-47.0) % MCV 84.4 (80.0-100.0) fL MCH 28.9 (25.0-34.0) pg MCHC 34.2 (32.0-36.0) g/dL RDW Std Deviation 38.4 (36.4-46.3) fL RDW Coeff of Lisa 12.4 (11.5-14.5) % Plt Count 231 (130-400) K/uL MPV 10.6 (9.4-12.4) fL Immature Gran % (Auto) 0.1 % Neut % (Auto) 76.5 % Lymph % (Auto) 18.1 % [place] % (Auto) 4.5 % Eos % (Auto) 0.2 % Baso % (Auto) 0.6 % Neut # (Auto) 7.50 H (1.40-6.50) K/uL Lymph # (Auto) 1.78 (1.20-3.40) K/uL [place] # (Auto) 0.44 (0.11-0.59) K/uL Eos # (Auto) 0.02 (0.00-0.50) K/uL Baso # (Auto) 0.06 (0.00-0.20) K/uL Immature Gran # (Auto) 0.01 (0.01-0.20) K/uL ESR 21 (0-30) mm/hr Sodium 136 (136-145) mmol/L Potassium 3.6 (3.5-5.1) mmol/L Chloride 104 (98-107) mmol/L Carbon Dioxide 26 (21-32) mmol/L Anion Gap 6 (3-11) BUN 20 (6-23) mg/dl Creatinine 0.67 (0.6-1.2) mg/dl Est Cr Clr Drug Dosing 110.8 ml/min Est GFR ( Amer) 113.9 ml/min Est GFR (Non-Af Amer) 98.3 ml/min BUN/Creatinine Ratio 29.9 H (10-20) Glucose 121 H (70-99(Fasting)) mg/dl Estimat Average Glucose mg/dl Hemoglobin A1c (4.5-5.6) % Lactate 0.8 (0.4-2.0) mmol/L Calcium 9.9 (8.6-10.3) mg/dl Magnesium 2.0 (1.7-2.4) mg/dl Total Bilirubin 0.6 (0.2-1.0) mg/dl Direct Bilirubin 0.1 (0-0.2) mg/dl AST 13 (13-39) U/L ALT 10 (7-52) U/L Alkaline Phosphatase 47 (34-104) U/L Troponin I High Sens < 2.3 (0-14) pg/ml C-Reactive Protein 0.53 H (0-0.5) mg/dl Total Protein 7.0 (6.0-8.3) gm/dl Albumin 4.1 (3.4-5.0) gm/dl Procalcitonin < 0.02 (0-0.5) ng/ml Urine Color Urine Appearance (Clear) Urine pH (4.5-7.5) Ur Specific [place] (1.000-1.030) Urine Protein (Negative) Urine Glucose (UA) (Negative) Urine Ketones (Negative) Urine Blood (Negative) Urine Nitrite (Negative) Urine Bilirubin (Negative) Urine Urobilinogen (Negative) Ur Leukocyte Esterase (Negative) Fld Lyme DNA (PCR) Fluid Comment Synovial Source Synovial Color Synovial Appearance Synovial WBC (Auto) (0-200) /ul Synovial RBC (Auto) /uL Synovial Polynuclear % % Synovial Mononuclear % % Synovial Crystals Lyme Specimen Source Lyme Disease Screen Negative (Negative) Diagnostic Findings Her radiographs reveal degenerative changes and effusion
--- OUTSIDE RECORDS SUMMARY | 2023-06-29 19:30 | External Medical Summary | Summary of Care ---
Author Name Unknown Organization [facility] Address [address] [place] [address] Phone [phone] Care Team Providers Care Driver Operator Name Role Phone Nusrat Floyd DO Primary Care Provider [phone] Reason for Visit * Reason Onset Date Comments Information 03/08/2023 Encounter Details Date Type Department Care Team (Late st Contact Info) Description 03/08/2023 Telephone Family Practice [facility] [address] [place] [address] Edmund Alarcon CRNP [address] [place] [address] Information Allergies No known active allergiesdocumented as of this encounter (statuses as of 03/08/2023) Medications Medication Sig Dispensed Refills Start Date End Date Status Multi-Day Vitamins Oral Tablet Take 1 Tablet by mouth daily. 0 Active Fluticasone Propionate 50 MCG/ACT Nasal Suspension (Flonase)Indications: Seasonal allergic rhinitis due to pollen INSTILL 2 SPRAYS INTO EACH NOSTRIL ONCE DAILY. 16 mL 1 12/17/2021 Active Loratadine 10 MG Oral Tablet (Claritin)Indications :Seasonal allergic rhinitis due to pollen Take by mouth 1 Tablet in the morning. 90 Tablet 3 12/17/2021 Active Ondansetron 4 MG Oral Tablet Disintegrating (Zofran)Indications:N ausea and vomiting, unspecified vomiting type Place 1 Tablet on tongue every 8 hours as needed for Nausea. dissolve on tongue. 12 Tablet 0 09/03/2022 Active Additional Information Patient not taking.Reported on 03/07/2023 documented as of this encounter (statuses as of 03/08/2023) Active Problems Problem Noted Date Diagnosed Date COVID-19 virus infection 08/05/2021 Seasonal allergic rhinitis due to pollen 022 Malaise and fatigue 02/10/2021 Breast pain, left 02/10/2021 Prediabetes 02/10/2020 Overview: Per Prediabetes protocol documented as of this encounter (statuses as of 03/08/2023) Resolved Problems Problem Noted Date Diagnosed Date Resolved Date Prediabetes 08/13/2018 02/15/2019 Overview: Per Prediabetes protocol #1 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 06/18/2013 05/09/2020 Other acne 02/04/2008 05/09/2020 Lymph node enlargement 02/04/200805/09 documented as of this encounter (statuses as of 03/08/2023) Immunizations Name Administration Dates Next Due COVID-19 mRNA, LNP-s, No Pre serve, 2-Dose Series (Moderna) 08/21/2020,07/24/2020 SEASONAL INFLUENZA, PF, 6 M & Above, IM , (FLULAVAL or FLUZONE) 03/07/2023,12/30/2021,02/10/2021,2019,01/22/2019,04/19/2018 TDAP (age 10 and older)(Boostrix) 12/30/2021,04/2011 Zoster Vaccine Recombinant (Shingrix) 03/07/2023 ,09/10/2020 documented as of this encounter Social History Tobacco Use Types Packs/Day Years Used Date Smoking Tobacco: Never Passive Smoke Exposure: Never Smokeless Tobacco: Never Alcohol Use Standard Drinks/Week Comments No 0 (1 standard drink = 0.6 oz pur e alcohol) PHQ-2 Answer Date Recorded PHQ Adult Total Score 0 12/30/2021 Hunger Vital Sign Answer Date Recorded Within the past 12 months, y ou worried that your food would run out before you got the money to buy more. Never true 12/31/19 22 Within the past 12 months, t he food you bought just didn't last and you didn't have money to get more. Never true 12/30/2021 Sex and Gender Information Value Date Recorded Sex Assigned at Female 10/17/2019 5:02 PM EDT Gender Identity Female 10/17/2019 5:02 PM EDT Sexual Orientation Straight 10/17/2019 5: 02 PM EDT Job Start Date Occupation Industry Not on file Not on file Not on file documented as of this encounter Miscellaneous Notes * Telephone Encounter - Rico Majano RN - 03/08/2023 11:49 AM EST Signed DME order for compression stockings, patient demographics, and office note from 03/07/2023 faxed to [facility] at [phone] with confirmation. documented in this encounter Plan of Treatment Upcoming Encounters Date Type Department Care Team (Late st Contact Info) Description 03/15/2023 9:00 AM EST Office Visit Orthopaedics [facility] [address] [place] [address] Gustabo Peterson MD [address] [place] [id number] 03/20/2023 3:15 PM EST Office Visit Orthopaedics [facility] [address] [place] [address] Gustabo Peterson MD [address] [place] [id number] 05/05/2023 2:00 PM EST Nutrition Services Nutrition, [facility] [address] [address] Roxana Fuller RDN [address] [place] [address] 07/21/2023 3:00 PM EDT [facility] [address] [place] [address] Health Maintenance Due Date Last Done Comments Hepatitis B (1 of 3 - 3-dose series) 1966 HIV Screening 1981 Hepatitis C Screening 1984 Colonoscopy 07/07/2011 Fecal Occult Blood Test 07/07/2011 Sigmoidoscopy 07/07/2011 Cologuard 01/22/2022 01/22/2019 Colorectal Cancer Screening 01/22/2022 COVID-19 Vaccine ( season) 2022 08/21/2020, 07/24/2020 Depression Screening 12/30/2022 12/30/2021 Mammogram 07/16/2023 07/15/2022, 07/2021, 02/24/2021, Additional history exists HbA1c 11/09/2023 11/08/2022, 12/02, 02/10/2021, Additional history exists PAP SMEAR-EVERY 5 YRS,AGES 21-100 01/23/2025 01/24/2020, 04/18/2017, 02/04/2008 Lipid Panel 02/10/2026 02/10/2021, 01/02, 01/22/2019, Additional history exists DTaP,Tdap,and Td Vaccines (3 - Td or Tdap) 12/31/2031 12/30/2021, 09/02/2011 Cervical Cancer Screening Discontinued Pap Smear Discontinued 01/24/2020, 04/03, 02/04/2008 Influenza Vaccine (FLU shot) Completed 03/07/2023, 12/30/2021, 02/10/2021, Additional history exists Zoster Vaccines Completed 03/07/2023, 09/10/2020 GARDASIL-HPV IMMUNIZATION SERIES Aged Out No longer eligible based on patient's age to complete this topic HPV/Co-Test Discontinued MENINGOCOCCAL (MENACTRA/MENVEO) Aged Out No longer eligible based on patient's age to complete this topic Pneumococcal Vaccine: Pediatrics (0 to 5 Years) and At-Risk Patients (6 to 64 Years) Aged Out No longer eligible based on patient's age to complete this topic documented as of this encounter Medical Devices Not on filedocumented as of this encounter Additional Health Concerns Infection Onset Date Last Indicated Resolved Time COVID-19 (confirmed) 08/03/2021 08/03/2021 documented as of this encounter Care Teams Driver Operator Relationship Specialty Start Date End Date Nusrat Floyd DO [address] [place] [id number] PCP - General Family Medicine 08/11/21 documented as of this encounter
--- OUTSIDE RECORDS SUMMARY | 2023-06-29 19:30 | External Medical Summary | Summary of Care ---
Author Name Unknown Organization [facility] Address [address] [place] [address] Phone [phone] Care Team Providers Care Minister Name Role Phone Nusrat Floyd DO Primary Care Provider Reason for Visit * Reason Onset Date Comments Procedure 01/12/2023 Encounter Details Date Type Department Care Team Description 01/12/2023 Telephone General Surgery, [facility] [address] [place] [address] Services, Scheduling [address] [place] [address] Procedure Allergies No known active allergiesdocumented as of this encounter (statuses as of 01/12/2023) Medications Medication Sig Dispensed Refills Start Date End Date Status Multi-Day Vitamins Oral Tablet Take 1 Tablet by mouth daily. 0 Active Fluticasone Propionate 50 MCG/ACT Nasal Suspension (Flonase)Indications:S easonal allergic rhinitis due to pollen INSTILL 2 SPRAYS INTO EACH NOSTRIL ONCE DAILY. 16 mL 1 12/17/2021 Active Loratadine 10 MG Oral Tablet (Claritin)Indications: Seasonal allergic rhinitis due to pollen Take by mouth 1 Tablet in the morning. 90 Tablet 3 12/17/2021 Active Ondansetron 4 MG Oral Tablet Disintegrating (Zofran)Indications:Na usea and vomiting, unspecified vomiting type Place 1 Tablet on tongue every 8 hours as needed for Nausea. dissolve on tongue. 12 Tablet 0 09/03/2022 Active documented as of this encounter (statuses as of 01/12/2023) Active Problems Problem Noted Date COVID-19 virus infection 08/05/2021 Seasonal allergic rhinitis due to pollen 06/02/2021 Malaise and fatigue 02/10/2021 Breast pain, left 02/10/2021 Prediabetes 02/10/2020 Overview: Per Prediabetes protocol documented as of this encounter (statuses as of 01/12/2023) Resolved Problems Problem Noted Date Resolved Date Prediabetes 08/13/2018 02/15/2019 Overview: Per Prediabetes protocol #1 Varicose veins of lower extremities with complic ations 06/18/2013 05/09/2020 Other acne 02/04/2008 05/09/2020 Lymph node enlargement 02/04/2008 documented as of this encounter (statuses as of 01/12/2023) Immunizations Name Administration Dates Next Due COVID-19 mRNA, LNP-s, No Pre serve, 2-Dose Series (Moderna) 08/21/2020,07/24/2020 SEASONAL INFLUENZA, PF, 6 M & Above, IM , (FLULAVAL or FLUZONE) 12/30/2021,02/10/2021,01/24/2020,2018,04/19/2018 TDAP (age 10 and older)(Boostrix) 12/30/2021,04/2011 Zoster Vaccine Recombinant (Shingrix) 09/10/2020 documented as of this encounter Social History Tobacco Use Types Packs/Day Years Used Date Smoking Tobacco: Never Passive Smoke Exposure: Never Smokeless Tobacco: Never Alcohol Use Standard Drinks/Week Comments No 0 (1 standard drink = 0.6 oz pur e alcohol) Food Insecurity Answer Date Recorded Within the past 12 months, y ou worried that your food would run out before you got money to buy more. Never true 12/30/2021 Within the past 12 months, t he food you bought just didn't last and you didn't have money to get more. Never true 12/30/2021 Sex Assigned at Date Recorded Female 10/17/2019 5:02 PM E DT Job Start Date Occupation Industry Not on file Not on file Not on file documented as of this encounter Miscellaneous Notes * Telephone Encounter - Betzy Min, MARKO - 01/12/2023 9:42 AM EDT Patient wishes to reschedule. Please advise. * Telephone Encounter - MARKO Cruz - 01/12/2023 9:36 AM EDT Pt was to have a procedure with Dr. Leslie tomorrow 01/13, pt had to cancel due to illness. Please contact pt to reschedule. documented in this encounter Plan of Treatment Upcoming Encounters Date Type Specialty Care Team Description 03/20/2023 Office Visit Orthopedics Gustabo Peterson MD [address] [place] [address] 07/21/2023 Appointment Radiology Health Maintenance Due Date Last Done Comments Hepatitis B (1 of 3 - 3-dose series) 1966 HIV Screening 1981 Hepatitis C Screening 1984 HPV/Co-Test 1996 Colonoscopy 07/07/2011 Fecal Occult Blood Test 07/07/2011 Sigmoidoscopy 07/07/2011 Zoster Vaccines (2 of 2) 11/05/2020 09/10/2020 Cologuard 01/22/2022 01/22/2019 Colorectal Cancer Screening 01/22/2022 COVID-19 Vaccine ( season) 2022 08/21/2020, 07/24/2020 Influenza Vaccine (FLU shot) (#1) 2022 12/30/2021, 02/10/2021, 01/24/2020, Additional history exists Depression Screening 12/30/2022 12/30/2021 Cervical Cancer Screening 01/23/2023 Pap Smear 01/23/2023 01/24/2020, 04/03, 02/04/2008 Mammogram 07/16/2023 07/15/2022, 07/2021, 02/24/2021, Additional history exists HbA1c 11/09/2023 11/08/2022, 12/02, 02/10/2021, Additional history exists Lipid Panel 02/10/2026 02/10/2021, 01/02, 01/22/2019, Additional history exists DTaP,Tdap,and Td Vaccines (3 - Td or Tdap) 12/31/2031 12/30/2021, 09/02/2011 GARDASIL-HPV IMMUNIZATION SERIES Aged Out No longer eligible based on patient's age to complete this topic MENINGOCOCCAL (MENACTRA/MENVEO) Aged Out No longer eligible [...] documented as of this encounter Care Teams Minister Relationship Specialty Start Date End Date Nusrat Floyd, DO [address] [place] [address] PCP - General Family Medicine 08/11/21 documented as of this encounter
--- OUTSIDE RECORDS SUMMARY | 2023-06-29 19:30 | External Medical Summary | Summary of Care ---
Author Name Unknown Organization [facility] Address [address] [place] [address] Phone [phone] Care Team Providers Care Check Writer Salesperson Name Role Phone Nusrat Floyd DO Primary Care Provider [phone] Reason for Referral * Evaluate & Treat - Unlimited Visits (Within 30 days (routine)) - Pending Review Specialty Diagnoses / Procedures Referred By Keyonna das Referred To Contact Automatic Transmission Mechanic / Nutrition Services Diagnoses Prediabetes Edmund Alarcon CRNP [address] [place] [address] Referral ID Status Reason Start Date Expiration Date Visits Requested Visits Authorized [id number] Pending Review Specialty Services Required 03/07/[phone] Question Answer Referral Priority Within 30 days (routine) Where should this appointment be scheduled? [facility] Reason for Referral Prediabetes Comments This referral is for Diabetes Self-Management Training (DSMT) by a recognized [place] [employer] (ADA) conservation educator: Nurse (RN), Registered Dietitian Remote Sensing Surveyor (RDN), and/or Diabetes Medical Nutrition Therapy (MNT) Management (dietitian only). Diabetes educators are responsible for assessing the participant's diabetes education needs, and providing diabetes self-management training in accordance with the standards set by the ADA for DSMT. Any adjustment in diabetes therapy will be made within the guidelines of standards of practice and [facility] approved policies and procedures. I understand that the conservation educator will keep me informed. Areas of Education: Pathophysiology Nutrition Physical Activity Medications Monitoring Acute Complications Chronic Complications Psychosocial Management Promote Health/Behavior Change Participant will be offered 1:1 education training if there is a lack of classes available within 2 months. Providers can also order 1:1 training if indicated for participant for the following reasons: 1:1 Training for Insulin Initiation Participant Inappropriate for Class Setting By my electronic signature, I understand that my patient will be offered the comprehensive ADA content area above unless deemed not appropriate of I specify otherwise here: Reason for Visit * Reason Onset Date Comments Physical-Exam Annual check up Medication Administration 03/07/2023 Flu an d/or Pneumo Inj Encounter Details Date Type Department Care Team (Late st Contact Info) Description 03/07/2023 2:00 PM EST Office Visit Family [facility] [address] [facility] [place] [address] Edmund Alarcon CRNP [address] [facility] [place] [address] Well adult exam*; Need for prophylactic vaccination and inoculation against influenza; Overweight (BMI 25.0-29.9); Prediabetes; Varicose veins of both lower extremities with pain; Need for shingles vaccine Allergies No known active allergiesdocumented as of [...] on file documented as of this encounter Last Filed Vital Signs Vital Sign Reading Time Taken Comments Blood Pressure 124/80 03/07/2023 2:23 PM EST Pulse 84 03/07/2023 2:08 PM EST Temperature 36.5 C (97.7 F) 03/07/2023 2:08 PM ES T Respiratory Rate 16 03/07/2023 2:08 PM EST Oxygen Saturation - - Inhaled Oxygen Concentration - - Weight 80.4 kg (177 lb 3.2 oz) 03/07/2023 2:08 P M EST Height 169.8 cm (5' 6.85") 03/07/2023 2:08 PM ES T Body Mass Index 27.88 03/07/2023 2:08 PM EST documented in this encounter Patient Instructions * Patient Instructions* Rico Majano RN - 03/07/2023 2:11 PM EST ~~PATIENT INSTRUCTIONS FOR FLU SHOT~~ Possible side effects of influenza vaccine, (flu shot), are usually mild and include: 1. Soreness or redness at injection site 2. Low grade fever 3. Body aches You may use Tylenol/Acetaminophen as needed for these symptoms. LET YOUR DOCTOR KNOW IMMEDIATELY IF YOU HAVE DIFFICULTY BREATHING OR SWALLOWING, EXPERIENCE ITCHINGOF FEET OR HANDS, HAVE SWELLING OF EYES, FACE OR INSIDE OF NOSE. documented in this encounter Progress Notes * Edmund Alarcon CRNP - 03/07/2023 2:17 PM EST Images from the original note were not included. Follow up Family Medicine Visit History of Present Illness Yamilka Angel is a very pleasant 57 year old female with PMH listed below presenting with annual check up. No fever, chills, chest pain, shortness of breath, headache, nausea, vomit, diarrhea, constipation or vision changes Varicose vein, requesting thigh length compression stocking Social History Socioeconomic History Marital status: Spouse name: Not on file Number of children: Not on file Years of education: Not on file Highest education level: Not on file Occupational History Not on file Tobacco Use Smoking status: Never Passive exposure: Never Smokeless tobacco: Never Vaping Use Vaping Use: Never used Substance and Sexual Activity Alcohol use: No Drug use: No Sexual activity: Yes Partners: Male control/protection: Condom Comment: Other Topics Concern Not on file Social History Narrative Not on file Social Determinants of Health Financial Resource Strain: Not on file Food Insecurity: No Food Insecurity (12/30/2021) Hunger Vital Sign Worried About Running Out of Food in the Last Year: Never true Ran Out of Food in the Last Year: Never true Transportation Needs: Not on file Physical Activity: Not on file Stress: Not on file Social Connections: Not on file Intimate Partner Violence: Not on file Housing Stability: Not on file PMH: Past Medical History: Diagnosis Date Acne vulgaris Lymph node enlargement Past Surgical History: Procedure Laterality Date BX LYMPH NODE-SUPERFIC under jaw - benign VEIN ABLATION EXTREMITY,ENDOVEN,1ST Left 02/10/2015 ENDOVENOUS RADIOFREQUENCY ABLATION THERAPY FIRST VEIN performed by Musa Null MD at OR [facility] Outpatient Medications Marked as Taking for the 03/07/23 encounter (Office Visit) with Edmund Alarcon CRNP Medication Sig Fluticasone Propionate 50 MCG/ACT Nasal Suspension (Flonase) INSTILL 2 SPRAYS INTO EACH NOSTRIL ONCE DAILY. Loratadine 10 MG Oral Tablet (Claritin) Take by mouth 1 Tablet in the morning. Multi-Day Vitamins Oral Tablet Take 1 Tablet by mouth daily. Review of patient's allergies indicates: No Known Allergies Most Recent Immunizations Administered Date(s) Administered COVID-19 mRNA, LNP-s, No Preserve, 2-Dose Series (Moderna) 08/21/2020 SEASONAL INFLUENZA, PF, 6 M & Above, IM , (FLULAVAL or FLUZONE) 12/30/2021 TDAP (age 10 and older)(Boostrix) 12/30/2021 Zoster Vaccine Recombinant (Shingrix) 09/10/2020 Review of Systems: Physical Exam BP 130/86 (BP Site: Left Arm, BP Position: Sitting, BP Cuff Size: Regular) | Pulse 84 | Temp 36.5 C (97.7 F) (Tympanic) | Resp 16 | Ht 1.698 m (5' 6.85") | Wt 80.4 kg (177 lb 3.2 oz) | LMP 08/16/2011 | BMI 27.88 kg/m | BSA 1.95 m Physical Exam Constitutional: Appearance: Normal appearance. She is well-developed and well-groomed. HENT: Head: Normocephalic. Right Ear: Tympanic membrane, ear canal and external ear normal. Left Ear: Tympanic membrane, ear canal and external ear normal. Nose: Nose normal. Mouth/Throat: Mouth: Mucous membranes are moist. Pharynx: Oropharynx is clear. Eyes: Extraocular Movements: Extraocular movements intact. Conjunctiva/sclera: Conjunctivae normal. Pupils: Pupils are equal, round, and reactive to light. Cardiovascular: Rate and Rhythm: Normal rate and regular rhythm. Pulses: Normal pulses. Heart sounds: Normal heart sounds. Pulmonary: Effort: Pulmonary effort is normal. Breath sounds: Normal breath sounds. Abdominal: General: Bowel sounds are normal. Palpations: Abdomen is soft. Musculoskeletal: General: Normal range of motion. Cervical back: Normal range of motion and neck supple. Comments: +varicose veins BLE Skin: General: Skin is warm and dry. Capillary Refill: Capillary refill takes less than 2 seconds. Neurological: General: No focal deficit present. Mental Status: She is alert and oriented to person, place, and time. Psychiatric: Mood and Affect: Mood normal. Assessment and Plan 1. Well adult exam Discussed HM topics Pap 2020 Mammo scheduled 07/25 Colon ca screening - declined 2. Need for prophylactic vaccination and inoculation against influenza - INFLUENZA VACC, QUAD, PF, 6 MONTHS & UP, 0.5 ML, IM 3. Overweight (BMI 25.0-29.9) 4. Prediabetes - DIABETES MANAGEMENT EDUCATION (ADA) REFERRAL 5. Varicose veins of both lower extremities with pain - COMPRESSION STOCKING THIGH HIGH,18-30 MM HG - DURABLE MEDICAL EQUIPMENT 6. Need for shingles vaccine - ZOSTER VACCINE RECOMB, 2 DOSE, IM (SHINGRIX) Wrap-Up I have advised the patient to call our office with any worsening or new symptoms. I spent a total of 20-29 minutes (exact time 25 mins) on the date of service in preparation, delivery, and documentation of the care provided to Yamilka Angel excluding any time spent in the performance of separately billed services. Edmund Alarcon, MSN, SIL[facility] 03/08/2023 Addendum -- varicose veins in BLE * Rico Majano RN - 03/07/2023 2:10 PM EST PRE - ADMINISTRATION DOCUMENTATION Are you experiencing any cold symptoms or fever? No Have you had Guillain-[place] Syndrome (an illness that causes paralysis) within the last 6 weeks? No Have you had the flu shot in the past? YES Have you ever had a reaction to the flu shot? No Rico Majano RN, 03/07/2023 2:10 PM documented in this encounter Nursing Notes * Rico Majano RN - 03/07/2023 2:07 PM EST Chief Complaint Patient presents with Physical-Exam Annual check up documented in this encounter Plan of Treatment Upcoming Encounters Date Type Department Care Team (Late st Contact Info) Description 03/15/2023 9:00 AM EST Office Visit Orthopaedics [facility] [address] [place] [address] Gustabo Peterson MD [address] [place] [address] 03/20/2023 3:15 PM EST Office Visit Orthopaedics [facility] [address] [place] [address] Gustabo ePterson MD [address] [place] [address] 05/05/2023 2:00 PM EST Nutrition Services Nutrition, [facility] [address] [place] [address] Roxana Fuller, RDN [address] [place] [address] 07/21/2023 3:00 PM EDT Appointment Radiology, [place] [address] [place] [id number] Scheduled Referrals Name Type Priority Associated Diagnoses Orde r Schedule DIABETES MANAGEMENT EDUCATION (ADA) REFERRAL Referral Within 30 days (routine) Prediabetes Ordered: 03/07/2023 Health Maintenance Due Date Last Done Comments Hepatitis B (1 of 3 - 3-dose series) 1966 HIV Screening 1981 Hepatitis C Screening 1984 Colonoscopy 07/07/2011 Fecal Occult Blood Test 07/07/2011 Sigmoidoscopy 07/07/2011 Cologuard 01/22/2022 01/22/2019 Colorectal Cancer Screening 01/22/2022 COVID-19 Vaccine (2022- season) 2022 08/21/2020, 07/24/2020 Depression Screening 12/30/2022 [...] Not on filedocumented as of this encounter Visit Diagnoses Diagnosis Well adult exam- Primary Routine general medical examination at a health care facility Need for prophylactic vaccination and inoculation against influenza Overweight (BMI 25.0-29.9) Overweight Prediabetes Other abnormal glucose Varicose veins of both lower extremities with pain Varicose veins of lower extremities with other complications Need for shingles vaccine Need for prophylactic vaccination and inoculation against other viral diseases documented in this encounter Additional Health Concerns Infection Onset Date Last Indicated Resolved Time COVID-19 (confirmed) 08/03/2021 08/03/2021 documented as of this encounter Care Teams Check Writer Salesperson Relationship Specialty Start Date End Date Nusrat Floyd DO [address] [place] [address] PCP - General Family Medicine 08/11/21 documented as of this encounter
--- OUTSIDE RECORDS SUMMARY | 2023-06-29 19:30 | External Medical Summary | Summary of Care ---
Author Name Unknown Organization [facility] Address [address] [place] [address] Phone [phone] Care Team Providers Care Student Services Vice President Name Role Phone Nusrat Floyd DO Primary Care Provider [phone] Reason for Referral * Evaluate & Treat - Unlimited Visits (Within 10 days (routine)) - Pending Review Specialty Diagnoses / Procedures Referred By Keyonna das Referred To Contact Physical Therapy / Physical Medicine And Rehab Diagnoses Chronic pain of right knee Primary osteoarthritis of right knee Gustabo Peterson MD [address] [place] [address] Referral ID Status Reason Start Date Expiration Date Visits Requested Visits Authorized [id number] Pending Review Specialty Services Required 3 [phone] Question Answer Referral Priority Within 10 days (routine) Where should this appointment be scheduled? [facility] Tricompartmental osteoarthritis, severe in the patellofemoral compartment Patient has full MRI report Reason for Visit * Reason Comments Follow Up Right knee Encounter Details Date Type Department Care Team Description 01/10/2023 Office Visit Orthopaedics [facility] [address] [place] [address] Gustabo Peterson MD [address] [place] [address] Chronic pain of right knee*; Primary osteoarthritis of right knee Allergies No known active allergiesdocumented as of [...] acne 02/04/2008 05/09/2020 Lymph node enlargement 02/04/2008 1 documented as of this encounter (statuses as [...] on file documented as of this encounter Progress Notes * Gustabo Peterson MD - 01/10/2023 3:15 PM EDT Yamilka Angel [id number] Yamilka Angel is a 57 year old female who presents for f/u to [facility] for right knee injury/pain. I saw her initially for this on 11/09/2022 Most recent visit 12/12/2022 Quality: reviewed and agree with Nursing Notes for HPI elements History: History on 11/09/2022 - Pt referred by for Rt knee pain and heaviness feeling., has had heaviness and uncomfortable feeling since back from vacation, had increased swelling had drained 4 weeks ago and was placed on oral abx. At present not as swollen.xray s in chart. She denies surgery or injections. She was notadmitted to any hospitalist. Additional history 12/12/2022: presents today for follow up on right knee pain Has been using an Markell wrap for support which helps. In addition her also brought records she had. Those are described below Since that visit: presents to review right knee MRI done on 01/04/23. No pain at present ROS: ROS per HPI otherwise non-contributory Past Medical History: Diagnosis Date Acne vulgaris Lymph node enlargement Family History Problem Relation Age of Onset Heart attack Brother Hypertension Brother Hypertension Brother Coronary Artery disease Brother Breast Cancer No significant family history Social History Socioeconomic History Marital status: Spouse [...] Resource Strain: Not on file Food Insecurity: Not on file Transportation Needs: Not on file Physical Activity: Not on file Stress: Not on file Social Connections: Not on file Intimate Partner Violence: Not on file Housing Stability: Not on file Physical Exam Constitutional: Generally well-nourished and in no acute distress Psychiatric: Mood and Affect normal Eyes: EOMI Respiratory: Normal respiratory effort with regular rate and rhythm Cardiovascular: No edema in the affected extremity(s) Radiology (I have personally reviewed the following films): 01/04/2023: MRI of the right knee FINDINGS Menisci: No appreciable tear or meniscocapsular separation. Cruciate Ligaments: Intact. Collateral Ligaments: Medial collateral ligament is intact. Visualized posterolateral corner complex structures (including the fibular collateral ligament proper, biceps femoris tendon, and popliteustendon) are intact. Extensor Mechanism: Quadriceps and patellar tendons are intact. Medial and lateral extensor retinacula are intact. Muscles, Tendons, and Neurovascular Structures: Regional musculature is normal in bulk. Visualized tendons are intact. Visualized portions of the tibial and common peroneal nerves are grossly normal in size and signal intensity. Popliteal vessels are unremarkable. Bone and Cartilage: Tricompartmental osteoarthritis, severe in the patellofemoral compartment (where there is full-thickness cartilage loss at both sides of the joint). No fracture or aggressive bonelesion. No evidence of osteomyelitis. Intraosseous ganglion cysts in the posterior aspect of the tibial plateau (near the posterior root of the medial meniscus). Miscellaneous: 2.3 cm ganglion cyst in the popliteal fossa near the plantaris muscle origin. Moderate joint effusion. IMPRESSION IMPRESSION Tricompartmental osteoarthritis, severe in the patellofemoral compartment 11/09/2022: 4-view x-ray of the right knee Bones/joints: Moderately severe degenerative changes patellofemoral articulation greatest along the lateral patellar facet. Associated slight lateral subluxation of the patella with respect to the femoral condyles. Minimal spur formation arising from the medial and lateral femoral condyles and corresponding regions of the tibial plateau. Mild degenerative changes mediolateral knee compartments. Soft tissues: Normal. IMPRESSION IMPRESSION: 1. Tricompartmental degenerative osteoarthritis most severe involving the patellofemoral articulation. 2. No evidence of acute osseous injury Assessment and Plan: 1) acute right knee pain suspect pain is secondary to DJD, which is severe in the patellofemoral compartment Patient's to drop off paperwork this includes clinical laboratory results as well as x-ray results. These were scanned the patient's record today. X-ray results showed mild knee osteoarthritis Lab is reported to be aspirated fluid (however does not report what was aspirated) fluid described as yellow slightly turbid and only 5 mL. Cytology showed a neutrophil rich exudative pattern Limited ultrasound evaluation today I did not see an effusion 1 was not noted on exam MRI findings as above, report provided the patient Physical therapy referral placed Recommended lateral J brace for work/ambulation Follow-up p.r.n. Gustabo Peterson MD Primary Care Sports Medicine Orthopaedics [facility] [address] [facility] [place] [address] documented in this encounter Nursing Notes * Fiona Monteiro RN - 01/10/2023 3:17 PM EDT Pt present to review right knee MRI done on 01/04/23. No pain at present. Fiona Monteiro RN documented in this encounter Plan of Treatment Upcoming Encounters Date Type Specialty Care Team Description 03/20/2023 Office Visit Orthopedics Gustabo Peterson MD [address] [place] [address] 07/21/2023 Appointment Radiology Scheduled Referrals Name Type Priority Associated Diagnoses Orde r Schedule PHYSICAL THERAPY REFERRAL OP Referral Within 10 days (routine) Chronic pain of right knee Primary osteoarthritis of right knee Ordered: 01/10/2023 Health Maintenance Due Date Last Done Comments [...] as of this encounter Visit Diagnoses Diagnosis Chronic pain of right knee- Primary Primary osteoarthritis of right knee Primary localized osteoarthrosis, lower leg documented in this encounter Additional Health Concerns Infection Onset Date Last Indicated Resolved Time COVID-19 (confirmed) 08/03/2021 08/03/2021 documented as of this encounter Care Teams Student Services Vice President Relationship Specialty Start Date End Date Nusrat Floyd, DO [address] [place] [address] PCP - General Family Medicine 08/11/21 documented as of this encounter
--- OUTSIDE RECORDS SUMMARY | 2023-06-29 19:30 | External Medical Summary | Summary of Care ---
Author Name Unknown Organization [facility] Address [address] [place] [address] Phone [phone] Care Team Providers Care Janitorial Supervisor Name Role Phone Bright Floyda Katty MASON Primary Care Provider [phone] Reason for Visit * Reason Onset Date Comments Advice 11/15/2022 Encounter Details Date Type Department Care Team Description 11/15/2022 Telephone Orthopaedics [facility] [address] [facility] [place] [address] Gustabo Peterson MD [address] [facility] [place] [address] Advice Allergies No known active allergiesdocumented as of this encounter (statuses as of 01/13/2023) Medications Medication Sig Dispensed Refills Start Date [...] as of this encounter (statuses as of 01/13/2023) Active Problems Problem Noted Date COVID-19 virus infection 08/05/2021 Seasonal allergic rhinitis due to pollen 06/02/2021 Malaise and fatigue 02/10/2021 Breast pain, left 02/10/2021 Prediabetes 02/10/2020 Overview: Per Prediabetes protocol documented as of this encounter (statuses as of 01/13/2023) Resolved Problems Problem Noted Date Resolved Date Prediabetes 08/13/2018 02/15/2019 Overview: Per Prediabetes protocol #1 Varicose veins of lower extremities with complic ations 06/18/2013 05/09/2020 Other acne 02/04/2008 05/09/2020 Lymph node enlargement 02/04/2008 documented as of this encounter (statuses as of 01/13/2023) Immunizations Name Administration Dates Next Due COVID-19 [...] encounter Miscellaneous Notes * Telephone Encounter - MARKO Johnson - 11/15/2022 10:42 AM EDT Patients dropped off records per Dr. Peterson' requst. Placed in blue nurses folder. Thank you. documented in this encounter Plan of Treatment Upcoming Encounters Date Type Specialty Care Team Description 01/19/2023 Office Visit General Surgery Prakash Leslie MD [address] [place] [address] 03/20/2023 Office Visit Orthopedics Gustabo Peterson MD [address] [place] [address] 07/21/2023 Appointment Radiology Health Maintenance Due Date [...] 01/23/2023 01/24/2020, 04/03, 02/04/2008 Mammogram 07/16/2023 07/15/2022, 01/0 07/2021, 02/24/2021, Additional history exists HbA1c 11/09/2023 [...] documented as of this encounter Care Teams Janitorial Supervisor Relationship Specialty Start Date End Date Nusrat Floyd, DO [address] [place] [address] PCP - General Family Medicine 08/11/21 documented as of this encounter
--- OUTSIDE RECORDS SUMMARY | 2023-06-29 19:30 | External Medical Summary | Summary of Care ---
Author Name Unknown Organization [facility] Address [address] [place] [address] Phone [phone] Care Team Providers Care Welfare Director Name Role Phone Nusrat Floyd DO Primary Care Provider [phone] Reason for Visit * Reason Onset Date Comments Pre Cert/Prior Auth 01/05/2023 Encounter Details Date Type Department Care Team (Late st Contact Info) Description 01/05/2023 Telephone Orthopaedics [facility] [address] [place] [address] Gustabo Peterson MD [address] [place] [address] Pre Cert/Prior Auth Allergies No known active allergiesdocumented as of this encounter (statuses as of 04/06/2023) Medications Medication Sig Dispensed Refills Start Date [...] as of this encounter (statuses as of 04/06/2023) Active Problems Problem Noted Date Diagnosed Date COVID-19 virus infection 08/05/2021 Seasonal allergic rhinitis due to pollen 022 Malaise and fatigue 02/10/2021 Breast pain, left 02/10/2021 Prediabetes 02/10/2020 Overview: Per Prediabetes protocol documented as of this encounter (statuses as of 04/06/2023) Resolved Problems Problem Noted Date Diagnosed Date Resolved Date Prediabetes 08/13/2018 02/15/2019 Overview: Per Prediabetes protocol #1 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 06/18/2013 05/09/2020 Other acne 02/04/2008 05/09/2020 Lymph node enlargement 02/04/200805/09 documented as of this encounter (statuses as of 04/06/2023) Immunizations Name Administration Dates Next Due COVID-19 mRNA, LNP-s, No Pre serve, 2-Dose Series (Moderna) 08/21/2020,07/24/2020 Seasonal Influenza, PF, 6 M & above, IM , (FluLaval or Fluzone) 12/30/2021,02/10/2021,01/24/2020,2018,04/19/2018 TDAP (age 10 and older)(Boostrix) 12/30/2021,04/2011 [...] encounter Miscellaneous Notes * Telephone Encounter - Shruthi Grady OSA - 01/05/2023 4:05 PM EDT Denial reason: We reviewed the medical information given by your doctor. Your doctors records say you have kneepain. With what was received from your doctor, a decision was made that pain without recent therapyis not a reason for a(n) Knee MRI (right). To approve, we need doctor's notes that say you did exercises (physical therapy, chiropractic treatments, or medically directed home exercise program) for four weeks in the last six months. We also need to know the number of visits you went to. We need to know the dates you did those exercises and that you did not get better. It is our medical view that the Knee MRI (right) be denied as it is not medically necessary. [facility] Clinical Guideline 057-4 for Lower Extremity MRI was used in this request. * Telephone Encounter - Vibha Shipley OSA - 01/05/2023 8:54 AM EDT Looks like this was done yesterday and ordered by Dr Peterson, will fwd this to him. Thanks! * Telephone Encounter - Shruthi Grady OSA - 01/05/2023 8:39 AM EDT The Knee MRI requested for Yamilka Angel is currently in Peer to Peer Review with [facility]. Please have a Nurse, QUINTON, SURGICAL ASSISTANT or Physician call , reference tracking # [id number] and speak with a Physician Reviewer to procure the required authorization. After reviewing your clinical notes, a Peer to Peer Review is required prior to approval of the requested study. Please call to obtain authorization. Alternatively, if the Peer to Peer will not be completed, please have a Clinician contact this patient to provide an alternative treatment plan. MARKO Damon 01/05/2023, 8:39 AM documented in this encounter Plan of Treatment Upcoming Encounters Date Type Department Care Team (Late st Contact Info) Description 05/05/2023 2:00 PM EST Nutrition Services Nutrition, [facility] [address] [place] [address] Roxana Fuller RDN [address] [place] [address] 07/21/2023 3:00 PM EDT Appointment Radiology, [place] [address] [place] [address] [place] [address] Health Maintenance Due Date Last Done Comments [...] documented as of this encounter Care Teams Welfare Director Relationship Specialty Start Date End Date Nusrat Floyd DO [address] [place] [address] PCP - General Family Medicine 08/11/21 documented as of this encounter
--- OUTSIDE RECORDS SUMMARY | 2023-06-29 19:30 | External Medical Summary | Summary of Care ---
Author Name Unknown Organization [facility] Address [address] [place] [address] Phone [phone] Care Team Providers Care Handstitching Machine Armhole Feller Name Role Phone Nusrat Floyd DO Primary Care Provider Reason for Visit * Reason Onset Date Comments Procedure 01/12/2023 Encounter Details Date Type Department Care Team Description 01/12/2023 Telephone General Surgery, [facility] [address] [place] [address] Services, Scheduling [address] [place] [address] Procedure Allergies No known active allergiesdocumented as [...] Peterson MD [address] [place] [address] 07/21/2023 Appointment Radiology Health Maintenance Due Date [...] documented as of this encounter Care Teams Handstitching Machine Armhole Feller Relationship Specialty Start Date End Date Nusrat Floyd, DO [address] [place] [address] PCP - General Family Medicine 08/11/21 documented as of this encounter
--- OUTSIDE RECORDS SUMMARY | 2023-06-29 19:30 | External Medical Summary | Summary of Care ---
Author Name Unknown Organization [facility] Address [address] [place] [address] Phone [phone] Care Team Providers Care Hot Stamp Operator Name Role Phone Nusrat Floyd DO Primary Care Provider [phone] Reason for Visit * Reason Onset Date Comments Procedure 01/12/2023 Encounter Details Date Type Department Care Team Description 01/12/2023 Telephone General Surgery, [facility] [address] [place] [address] Services, Scheduling [address] [place] [address] Procedure Allergies No known active allergiesdocumented as [...] Peterson MD [address] [place] [address] 07/21/2023 Appointment Radiology Health Maintenance Due Date [...] documented as of this encounter Care Teams Hot Stamp Operator Relationship Specialty Start Date End Date Nusrat Floyd, DO [address] [place] [address] PCP - General Family Medicine 08/11/21 documented as of this encounter
--- OUTSIDE RECORDS SUMMARY | 2023-06-29 19:30 | External Medical Summary | Summary of Care ---
Author Name Unknown Organization [facility] Address [address] [place] [address] Phone [phone] Care Team Providers Care Nuclear Worker Technician Name Role Phone Nusrat Floyd DO Primary Care Provider Reason for Visit * Reason Onset Date Comments Procedure 01/12/2023 Encounter Details Date Type Department Care Team Description 01/12/2023 Telephone General Surgery, [facility] [address] [place] [address] Services, Scheduling [address] [place] [address] Procedure Allergies No known active allergiesdocumented as [...] Peterson MD [address] [place] [address] 07/21/2023 Appointment Radiology Health Maintenance Due Date [...] documented as of this encounter Care Teams Nuclear Worker Technician Relationship Specialty Start Date End Date Nusrat Floyd, DO [address] [place] [address] PCP - General Family Medicine 08/11/21 documented as of this encounter
--- OUTSIDE RECORDS SUMMARY | 2023-06-29 19:30 | External Medical Summary | Summary of Care ---
Author Name Unknown Organization [facility] Address [address] [place] [address] Phone [phone] Care Team Providers Care Front Desk Specialist Name Role Phone Nusrat Floyd DO Primary Care Provider [phone] Reason for Referral * Evaluate & Treat - Unlimited Visits (Within 30 days (routine)) - Pending Review Specialty Diagnoses / Procedures Referred By Keyonna das Referred To Contact French Folding Machine Operator / Nutrition Services Diagnoses Prediabetes Edmund Alarcon CRNP [address] [place] [address] Referral ID Status Reason Start Date Expiration Date Visits Requested Visits Authorized [id number] Pending Review Specialty Services Required 03/07/[phone] Question Answer Referral Priority Within 30 days (routine) Where should this appointment be scheduled? [facility] Reason for Referral Prediabetes Comments This referral is for Diabetes Self-Management Training (DSMT) by a recognized [place] Diabetes Association (ADA) tobacco prevention health educator: Nurse (RN), Registered Dietitian Balance Recesser (RDN), and/or Diabetes Medical Nutrition Therapy (MNT) Management (dietitian only). Diabetes educators are responsible for assessing the participant's diabetes education needs, and providing diabetes self-management training in accordance with the standards set by the ADA for DSMT. Any adjustment in diabetes therapy will be made within the guidelines of standards of practice and [facility] [address] [facility] approved policies and procedures. I understand that the tobacco prevention health educator will keep me informed. Areas of [...] 03/07/2023 2:00 PM EST Office Visit Family [facility] [address] [facility] [place] [address] Edmund Alarcon CRNP [address] [facility] [place] [address] Well adult exam*; Need for prophylactic vaccination [...] performed by Musa Null MD at OR [facility] Outpatient Medications Marked as Taking for the [...] separately billed services. Edmund Alarcon, MSN, SIL[facility] 03/08/2023 Addendum -- varicose veins in BLE * Rico Majano RN - 03/07/2023 2:10 PM EST PRE - ADMINISTRATION DOCUMENTATION Are you experiencing any cold symptoms or fever? No Have you had Guillain-Avilla Syndrome (an illness that causes paralysis) within [...] 03/15/2023 9:00 AM EST Office Visit Orthopaedics [facility] [address] [place] [address] Gustabo Peterson MD [address] [place] [address] 03/20/2023 3:15 PM EST Office Visit Orthopaedics [facility] [address] [place] [address] Gustabo Peterson MD [address] [place] [address] 05/05/2023 2:00 PM EST Nutrition Services Nutrition, [facility] [address] [place] [address] Roxana Fuller, RDN [address] [place] [address] 07/21/2023 3:00 PM EDT Appointment Radiology, [place] [address] [place] [id number] Scheduled Referrals Name Type Priority Associated Diagnoses [...] documented as of this encounter Care Teams Front Desk Specialist Relationship Specialty Start Date End Date Nusrat Floyd DO [address] [place] [address] PCP - General Family Medicine 08/11/21 documented as of this encounter
--- OUTSIDE RECORDS SUMMARY | 2023-06-29 19:30 | External Medical Summary | Summary of Care ---
Author Name Unknown Organization [facility] Address [address] [place] [address] Phone [phone] Care Team Providers Care Digital Media Representative Name Role Phone Nusrat Floyd DO Primary Care Provider [phone] Reason for Visit * Reason Onset Date Comments Procedure 01/12/2023 Encounter Details Date Type Department Care Team Description 01/12/2023 Telephone General Surgery, [facility] [address] [place] [address] Services, Scheduling [address] [place] [address] Procedure Allergies No known active allergiesdocumented as [...] Telephone Encounter - Betzy Min, MARKO - 01/13/2023 8:28 AM EDT Rescheduled to 01/19/23. * Telephone Encounter - MARKO Layton - 01/12/2023 9:42 AM EDT Patient wishes [...] Prakash Leslie MD [address] [place] [address] 03/20/2023 Office Visit Orthopedics Gustabo Peterson MD [address] [place] [address] 07/21/2023 Appointment Radiology Health Maintenance Due Date [...] documented as of this encounter Care Teams Digital Media Representative Relationship Specialty Start Date End Date Nusrat Floyd, DO [address] [place] [address] PCP - General Family Medicine 08/11/21 documented as of this encounter
[2023-06-30 07:16] LABS: Hematocrit (blood only) 37.6 % (37.0-47.0); Hemoglobin 12.5 g/dl (12.0-16.0); Mean Corpuscular Hemoglobin 28.3 pg (25.0-34.0); Mean Corpuscular Hgb Conc 33.2 g/dL (32.0-36.0); Mean Corpuscular Volume 85.1 fL (80.0-100.0); Mean Platelet Volume 10.5 fL (9.4-12.4); Platelet Count 212 K/uL (130-400); RDW Coefficient of Variation 12.3 % (11.5-14.5); Red Blood Count 4.42 M/uL (4.20-5.40); White Blood Count 7.56 K/ul (4.8-10.8)
[2023-06-30 07:40] LABS: BUN Creatinine Ratio 20.3 (10-20); Calcium 9.5 mg/dl (8.6-10.3); Creatinine Clr Calc Pharmacy 125.8 ml/min; Est GFR (African American) 118.8 ml/min; Est GFR (Non-African American) 102.5 ml/min; Potassium 3.8 mmol/L (3.5-5.1)
--- NOTE | 2023-06-30 10:35 | Orthopedic Progress Note ---
Date of Service June 30, 2023 Assessment & Plan (1) Arthritis of right knee: Plan: Fluid cultures are still pending. There is no growth on pulmonary results. We will continue to monitor for the aerobic and anaerobic cultures. Once results have been obtained we will most likely aspirate the knee, send the fluid off for Gram stain, culture, crystal and Lyme analysis and possibly inject a corticosteroid into her right knee. I made the patient aware of this. I will relay the information to Dr. Cramer. Once this is done patient can be discharged and will follow-up at the office in about 2 weeks. (2) Effusion of right knee: Admission and Anticipated Discharge Date Admission Date: June 29, 2023 Subjective This 57-year-old female is seen for follow-up of right knee pain and effusion. Patient had an aspiration performed on the right knee by Dr. Lyle in the butter maker hours of June 28. Patient states she is doing much better today. She is able to move her knee more. She states that the few fluid however has reaccumulated. Patient states that this has happened 2 times in the past which required aspiration. Currently she denies chest pain, shortness of breath, fever, chills, sweats, nausea, vomiting, diarrhea or numbness or tingling in her right lower extremity. She states that her only issue is that the fluid has reaccumulated and prevents her from fully flexing her knee. Review of Systems Review of Systems: All systems reviewed & are unremarkable except as noted in Subjective Physical Exam Physical Exam: Right knee: 2+ effusion. No warmth, erythema or ecchymosis, range of motion is from 0 degrees of extension to 94 degrees of flexion actively. Patient is able to perform active assisted straight leg raise. She is able to actively dorsi and plantarflex her foot. Her peripheral pulses are 2+. Capillary fill is less than 2 seconds. She is able to detect light sensation to touch over the pads of all digits. Results & Data Vital Signs (Past 12 Hours) Vital Signs Temp Pulse Resp BP Pulse Ox O2 Del Method 06/30/23 07:32 36.8 C 74 18 132/82 97 Room Air Diagnostic Findings Laboratory Results WBC 7.56 K/ul (4.8-10.8) 06/30/23 06:46 RBC 4.42 M/uL (4.20-5.40) 06/30/23 06:46 Hgb 12.5 g/dl (12.0-16.0) 06/30/23 06:46 Hct 37.6 % (37.0-47.0) 06/30/23 06:46 MCV 85.1 fL (80.0-100.0) 06/30/23 06:46 MCH 28.3 pg (25.0-34.0) 06/30/23 06:46 MCHC 33.2 g/dL (32.0-36.0) 06/30/23 06:46 RDW Std Deviation 38.0 fL (36.4-46.3) 06/30/23 06:46 RDW Coeff of Lisa 12.3 % (11.5-14.5) 06/30/23 06:46 Plt Count 212 K/uL (130-400) 06/30/23 06:46 MPV 10.5 fL (9.4-12.4) 06/30/23 06:46 Immature Gran % (Auto) 0.1 % 06/29/23 10:08 Neut % (Auto) 64.6 % 06/29/23 10:08 Lymph % (Auto) 27.6 % 06/29/23 10:08 [place] % (Auto) 6.6 % 06/29/23 10:08 Eos % (Auto) 0.6 % 06/29/23 10:08 Baso % (Auto) 0.5 % 06/29/23 10:08 Neut # (Auto) 5.00 K/uL (1.40-6.50) 06/29/23 10:08 Lymph # (Auto) 2.14 K/uL (1.20-3.40) 06/29/23 10:08 [place] # (Auto) 0.51 K/uL (0.11-0.59) 06/29/23 10:08 Eos # (Auto) 0.05 K/uL (0.00-0.50) 06/29/23 10:08 Baso # (Auto) 0.04 K/uL (0.00-0.20) 06/29/23 10:08 Immature Gran # (Auto) 0.01 K/uL (0.01-0.20) 06/29/23 10:08 ESR 21 mm/hr (0-30) 06/28/23 23:00 Sodium 140 mmol/L (136-145) 06/30/23 06:46 Potassium 3.8 mmol/L (3.5-5.1) 06/30/23 06:46 Chloride 109 mmol/L (98-107) H 06/30/23 06:46 Carbon Dioxide 29 mmol/L (21-32) 06/30/23 06:46 Anion Gap 2 (3-11) L 06/30/23 06:46 BUN 12 mg/dl (6-23) 06/30/23 06:46 Creatinine 0.59 mg/dl (0.6-1.2) L 06/30/23 06:46 Est Cr Clr Drug Dosing 125.8 ml/min 06/30/23 06:46 Est GFR ( Amer) 118.8 ml/min 06/30/23 06:46 Est GFR (Non-Af Amer) 102.5 ml/min 06/30/23 06:46 BUN/Creatinine Ratio 20.3 (10-20) H 06/30/23 06:46 Glucose 100 mg/dl (70-99(Fasting)) H 06/30/23 06:46 Estimat Average Glucose 120 mg/dl 06/29/23 10:08 Hemoglobin A1c 5.8 % (4.5-5.6) H 06/29/23 10:08 Lactate 0.8 mmol/L (0.4-2.0) 06/28/23 23:31 Calcium 9.5 mg/dl (8.6-10.3) 06/30/23 06:46 Magnesium 2.0 mg/dl (1.7-2.4) 06/30/23 06:46 Total Bilirubin 0.6 mg/dl (0.2-1.0) 06/28/23 23:00 Direct Bilirubin 0.1 mg/dl (0-0.2) 06/28/23 23:00 AST 13 U/L (13-39) 06/28/23 23:00 ALT 10 U/L (7-52) 06/28/23 23:00 Alkaline Phosphatase 47 U/L (34-104) 06/28/23 23:00 Troponin I High Sens < 2.3 pg/ml (0-14) 06/28/23 23:00 C-Reactive Protein 0.53 mg/dl (0-0.5) H 06/28/23 23:00 Total Protein 7.0 gm/dl (6.0-8.3) 06/28/23 23:00 Albumin 4.1 gm/dl (3.4-5.0) 06/28/23 23:00 25-OH Vitamin D Total 24.3 ng/ml (30-100) L 06/30/23 06:46 Procalcitonin < 0.02 ng/ml (0-0.5) 06/28/23 23:00 Urine Color Dark Yellow 06/29/23 Unknown Urine Appearance Clear (Clear) 06/29/23 Unknown Urine pH 6.0 (4.5-7.5) 06/29/23 Unknown Ur Specific [place] 1.025 (1.000-1.030) 06/29/23 Unknown Urine Protein Negative (Negative) 06/29/23 Unknown Urine Glucose (UA) Negative (Negative) 06/29/23 Unknown Urine Ketones Trace (Negative) H 06/29/23 Unknown Urine Blood Negative (Negative) 06/29/23 Unknown Urine Nitrite Negative (Negative) 06/29/23 Unknown Urine Bilirubin Negative (Negative) 06/29/23 Unknown Urine Urobilinogen Negative (Negative) 06/29/23 Unknown Ur Leukocyte Esterase Negative (Negative) 06/29/23 Unknown Fluid Comment 06/29/23 00:04 Synovial Source Knee 06/29/23 00:04 Synovial Color Straw 06/29/23 00:04 Synovial Appearance Hazy 06/29/23 00:04 Synovial WBC (Auto) 11758 /ul (0-200) H 06/29/23 00:04 Synovial RBC (Auto) < 2000 /uL 06/29/23 00:04 Synovial Polynuclear % 93.6 % 06/29/23 00:04 Synovial Mononuclear % 6.4 % 06/29/23 00:04 Synovial Crystals 06/29/23 00:04 Lyme Disease Screen Negative (Negative) 06/28/23 23:00 Impressions Chest X-Ray 06/28/23 22:59 XR chest 1V portable HISTORY: Sepsis COMPARISON: None. FINDINGS: The lungs are clear. Cardiac silhouette is normal in size. No pleural effusions. No pneumothorax. IMPRESSION: No acute process. ACT 112: Negative or not required by law. Electronically signed by: Minesh Calderón M.D. 06/29/2023 7:10 AM Knee X-Ray 06/28/23 23:04 XR knee RT 1 or 2V routine CLINICAL HISTORY: Right knee pain and swelling. COMPARISON: None FINDINGS: Alignment of the right knee is anatomic. There is no acute fracture. There are no osseous lesions. A moderate size joint effusion is present. There is lateral compartment osteophytosis. Patellofemoral compartment joint space narrowing with osteophytosis is noted. IMPRESSION: 1. No acute fracture within the right knee. 2. Moderate size joint effusion. 3. Moderate patellofemoral compartment osteoarthritis. ACT 112: Negative or not required by law. Electronically signed by: Robert Gonzáles M.D. 06/29/2023 7:14 AM
--- NOTE | 2023-06-30 15:54 | Procedure Note ---
Procedure Note Date of Service June 30, [address] Cramer's request patient's right knee was reaspirated. Under sterile technique her right knee was identified. Time out was performed and verbal consent obtained. The aspiration site was cleansed with iodine and alcohol. Pr ior to the injection she requested to be "numbed". Using 6 cc of 1% lidocaine plain I injected the aspiration tract for anesthesia. The area was recleansed with Betadine and alcohol swab. Then using a 18-gauge needle I aspirated 93 cc of dark yellow turbid fluid. No purulence. I then injected 40 mg of Depo-Medrol with 3 cc 1% lidocaine plain. She tolerated the aspiration and injection well. Pressure was applied for hemostasis at the injection site. A Band-Aid was applied. Then a 6 inch Markell bandage was used for compression around the knee. Post aspiration she was able to tolerate gentle range of motion to about 50 degrees. She was also able to perform a straight leg raise. Aspirate was sent for cell count, Gram stain, anaerobic and aerobic cultures and crystal analysis. We can follow this as an outpatient. If her knee pain resolves or improves she may be discharged to home from orthopedic standpoint. We can follow cultures as an outpatient. Recommended ice and elevation. Compression for the next few days. Walker as needed for comfort with ambulation. Range of motion as tolerated. Follow-up in approximately 1 week for reassessment. Please call [phone] with any questions. Coding
[2023-06-30] MEDS: methylPREDNISolone acetate 40 MG/ML VIAL INJ ONE (16:36)
[2023-06-30] MEDS: LIDOCAINE 1% LOCAL 20 ML VIAL INJ ONE (16:36)
--- NOTE | 2023-06-30 16:43 | Hospitalist Progress Note ---
Date of Service June 30, 2023 Assessment & Plan (1) Effusion of right knee: Plan: This is a 57-year-old female with past med history significant for prediabetes, seasonal allergic rhinitis, history of COVID presents with right knee pain and swelling. Right knee pain Right Knee effusion S/p arthrocentesis in ED --R knee X ray:No acute fracture within the right knee. Moderate size joint effusion. Moderate patellofemoral compartment osteoarthritis. Clinically not consistent with septic knee Likely right knee arthritis exacerbation with effusion Synovitic fluid studies reviewed, crystal analysis was negative as of 06/28 Appreciate orthopedics input - R knee joint was re-aspirated afternoon on 06/29 with cultures pending Received steroid injection 06/29 per procedure note Okay to go home if pain resolves/improves from ortho standpoint and can follow up cultures as an outpatient Recommended ice and elevation. Compression for the next few days. Walker as needed for comfort with ambulation. Range of motion as tolerated Patient will need to call [facility] ortho office Monday to schedule follow up for next week ([phone]) PT/OT recommending return home, ambulating with walker Continue IV Rocephin empirically Nausea and vomiting -> resolved Likely secondary to pain Will consider imaging if needed Antiemetics as needed Advance diet as tolerated Prediabetes HbA1c 5.8 Vitamin D deficiency Level of 23 Start D3 1,000iu daily DVT Px: SCD's for now CODE STATUS Full code Patient seen in collaboration with Dr. Haley. Please see addendum. I spent a total of 60 minutes coordinating, documenting, and providing care for this patient excluding time spent in the performance of separately billed services. Admission and Anticipated Discharge Date Admission Date: June 29, 2023 Supervising Physician Co-Signing Physician Notes Pt seen and examined by me, care coordinated w/ Cordelia Phelps PA-C, pls refer to her note above for further detail. Pt seen in follow up of R knee pain and effusion. Orthopedics following closely and re-aspirated the knee today. Also steroid injection was given - this was clarified with orthopedics over the phone. Pt currently sitting up in bed in NAD. Dressings applied over R knee. No fever, chills, chest pain or shortness of breath. No abd. pain, no n/v. Lungs are CTAB, heart sounds regular, abdomen soft, nontender, nondistended. Pt wished to be discharged in the evening. I discussed with Dr. Cramer in the evening and pt was ok for discharge initially. He also clarified that pt did receive steroid injection as there was concern by the pt and her that she did not. Pt then reported more pain in her knee and did not wish to be discharged. Plan to re-evaluate the pt in the morning. MD Tera Subjective This 57-year-old female is seen for follow-up of right knee pain and effusion. Patient had an aspiration performed on the right knee by Dr. Lyle in the [employer] worker hours of June 28 but fluid has reaccumulated. Patient states that this has happened 2 times in the past which required aspiration. More painful now, difficult to move her knee. Denies any fever, chills, lightheadedness, chest pain, shortness of breath, nausea, vomiting, abdominal pain, dysuria, diarrhea or constipation. Review of Systems Review of Systems: At least ten systems reviewed and negative except as noted in the HPI. Physical Exam Physical Exam: Gen: WD/WN, NAD, sitting in bedside chair, A&Ox3 HEENT: Normocephalic, atraumatic Lung: Clear to Auscultation bilaterally, no wheezes/rales/rhonchi Heart: Regular rate, regular rhythm, no murmurs, rubs, or gallops Abdomen: Soft, NT, ND +BS x 4 Extremities: R knee tender along the lateral aspect and joint line tenderness, + effusion, no erythema Skin: Warm, no rash Results & Data Results & Data Vital Signs (Past 12 Hours) Vital Signs Temp Pulse Resp BP Pulse Ox O2 Del Method 06/30/23 15:55 36.5 C 83 18 134/87 94 Room Air 06/30/23 07:32 36.8 C 74 18 132/82 97 Room Air Laboratory Results Short CBC 06/30/23 Range/Units 06:46 WBC 7.56 (4.8-10.8) K/ul Hgb 12.5 (12.0-16.0) g/dl Hct 37.6 (37.0-47.0) % Plt Count 212 (130-400) K/uL BMP 06/30/23 06:46 Sodium 140 Potassium 3.8 Chloride 109 H Carbon Dioxide 29 BUN 12 Creatinine 0.59 L Glucose 100 H Calcium 9.5 Diagnostic Findings Chest X-Ray 06/28/23 22:59 XR chest 1V portable HISTORY: Sepsis COMPARISON: None. FINDINGS: The lungs are clear. Cardiac silhouette is normal in size. No pleural effusions. No pneumothorax. IMPRESSION: No acute process. ACT 112: Negative or not required by law. Electronically signed by: Minesh Calderón M.D. 06/29/2023 7:10 AM Knee X-Ray 06/28/23 23:04 XR knee RT 1 or 2V routine CLINICAL HISTORY: Right knee pain and swelling. COMPARISON: None FINDINGS: Alignment of the right knee is anatomic. There is no acute fracture. There are no osseous lesions. A moderate size joint effusion is present. There is lateral compartment osteophytosis. Patellofemoral compartment joint space narrowing with osteophytosis is noted. IMPRESSION: 1. No acute fracture within the right knee. 2. Moderate size joint effusion. 3. Moderate patellofemoral compartment osteoarthritis. ACT 112: Negative or not required by law. Electronically signed by: Robert Gonzáles M.D. 06/29/2023 7:14 AM
[2023-06-30 17:06] LABS: Appearance Synovial Fluid Cloudy; Color Synovial Fluid Yellow; Mononuclear WBC Synovial 7.2 %; Polynuclear WBC Synovial 92.8 %; RBC Synovial Fluid Auto 2000 /uL; Source Synovial Fluid Right Knee; WBC Synovial Fluid Auto 12346 /ul (0-200)
[2023-06-30] MEDS ORDERED: oxyCODONE HCL IR 5 MG TAB (IMMEDIATE RELEASE) PO PRN (17:15)
--- NOTE | 2023-06-30 19:26 | Discharge Summary ---
Discharge Summary Date of Service June 30, 2023 Notes For Next Care Provider R knee effusion s/p aspiration, steroid injection Medication Changes From Visit Tylenol as needed Admission HPI Per Admitting Provider 57-year-old female with past med history significant for prediabetes, seasonal allergic rhinitis, history of COVID presents with right knee pain and swelling. Patient's states having swelling in the right knee for some time and pain for some time but it got worse. She is fasting for Ramadan. She was feeling dizzy. She was having low-grade fever and chills. Not feeling well. A lot of pain. Hemodynamics are okay. Denies any headache. No runny nose or sore throat. No cough. No chest pain or shortness of breath. No nausea. No abdominal pain. Normal bowel and bladder movements. Past medical history. As mentioned above Past surgical history. Biopsy of lymph node upper jaw. Vein ablation extremity Social history. . No smoking. No alcohol use. No drug use. Family history. Brother had coronary disease. Hypertension. Admission Exam Per Admitting Provider General- Not in distress Head- atraumatic Eyes- PERRL ENT- oropharynx clear Neck- supple, no JVD. Lungs- clear to auscultation no wheezing or crackles. Heart- regular rhythm; no murmur, no gallop. Abdomen- normal bowel sounds, soft, nontender, no distension Extremities- Right knee in dressing. Neuro- alert, oriented PERRL, no facial palsy; no dysarthria; Principal Dx & Hospital Course #1 = Principal Diagnosis (1) Arthritis of right knee: (2) Effusion of right knee: Plan This is a 57-year-old female with past med history significant for prediabetes, seasonal allergic rhinitis, history of COVID presents with right knee pain and swelling. R knee X ray:No acute fracture within the right knee. Moderate size joint effusion. Moderate patellofemoral compartment osteoarthritis. Clinically not consistent with septic knee per orthopedics Likely right knee arthritis exacerbation with effusion Synovitic fluid studies reviewed, crystal analysis was negative as of 06/28 Appreciate orthopedics input - R knee joint was re-aspirated afternoon on 06/29 with cultures pending Received steroid injection 06/29 Follow up scheduled with orthopedics for 07/04/[address] Cramer who will also follow up on cultures. Recommended ice and elevation and compression for the next few days, range of motion as tolerated, Tylenol PRN. PT/OT recommend return home. Walker as needed for comfort with ambulation [facility] orthopedics phone number ([phone]) No need to continue antibiotics at time of discharge. Dr. Cramer to follow up cultures Vitamin D deficiency - Level of 23. Started on daily supplement. Discharge Exam Gen: WD/WN, NAD, sitting in bedside chair, A&Ox3 HEENT: Normocephalic, atraumatic Lung: Clear to Auscultation bilaterally, no wheezes/rales/rhonchi Heart: Regular rate, regular rhythm, no murmurs, rubs, or gallops Abdomen: Soft, NT, ND +BS x 4 Extremities: R knee ttp, + effusion, no erythema Skin: Warm, no rash Updated Medication List Medication Instructions Recorded Confirmed Type cholecalciferol (vitamin D3) 25 25 mcg PO DAILY 1 month #30 caps 06/30/23 Rx mcg (1,000 unit) capsule (Vitamin D3) Hospital Stay Data Consultations 06/29/23 01:28 ED Decision to Admit Stat 06/29/23 10:02 Consult Orthopedic Surgery Routine 06/29/23 15:23 Consult Patient Rep [Consult Patient Services] Routine Pending Results Patient Have Any Pending Studies at Discharge: No Discharge Instructions Given to Patient (Per Discharging Provider) You were admitted for R knee pain and swelling. R knee X ray (06/27): No acute fracture within the right knee. Moderate size joint effusion. Moderate patellofemoral compartment osteoarthritis. R knee joint was re-aspirated afternoon on 06/[address] Cramer to follow up. Received steroid injection 06/29. Recommend continued ice and elevation, compression for the next few days and as needed Tylenol for pain. Walker as needed for comfort with ambulation. Range of motion as tolerated Noted to have vitamin D deficiency per labwork during admission. Take 1,000iu capsule daily. Follow up with Dr. Cramer (orthopedics) on Monday07/04/2023. Do not recommend to return to work until seen and re-evaluated by Dr. Cramer. Total Time Total Time Spent Total Time Spent (In Minutes): 40
[2023-06-30] MEDS: ACETAMINOPHEN 500 MG TAB PO PRN (19:43)
[2023-07-01 06:59] LABS: Hematocrit (blood only) 41.5 % (37.0-47.0); Hemoglobin 13.8 g/dl (12.0-16.0); Mean Corpuscular Hemoglobin 28.5 pg (25.0-34.0); Mean Corpuscular Hgb Conc 33.3 g/dL (32.0-36.0); Mean Corpuscular Volume 85.7 fL (80.0-100.0); Mean Platelet Volume 10.4 fL (9.4-12.4); Platelet Count 234 K/uL (130-400); RDW Coefficient of Variation 12.3 % (11.5-14.5); RDW Standard Deviation 38.1 fL (36.4-46.3); Red Blood Count 4.84 M/uL (4.20-5.40); White Blood Count 7.46 K/ul (4.8-10.8)
[2023-07-01 07:13] LABS: BUN Creatinine Ratio 34.5 (10-20); Calcium 9.9 mg/dl (8.6-10.3); Est GFR (African American) 119.4 ml/min
--- NOTE | 2023-07-01 09:46 | Orthopedic Progress Note ---
Date of Service July 01, 2023 Assessment & Plan (1) Effusion of right knee: (2) Right knee pain: Plan: Findings discussed. She has improved. I think she is suitable for discharge. Have communicated to primary team. Recommend rest ice elevation. Anti-infla mmatory and Tylenol if she is able to take them. She should not return to work until we reevaluate her on Monday. My office will contact her Monday morning about an appointment. PIPPA hose stocking. Ambulatory aid. Prescription for cane is given. If symptoms change with severe swelling pain fevers or any other problems or questions either call the office or go to the emergency room. The and patient are under the understanding that they were told yesterday that she could not get a cortisone shot because of the concern of infection. They were under the belief that the fluid would be aspirated but that she did not receive the cortisone shot. I discussed with Leida napoleon Martina yesterday and she indicated to me that she did drain the fluid out of the patient's knee and administer the cortisone shot. I discussed this with the patient and her . Admission and Anticipated Discharge Date Admission Date: June 29, 2023 Subjective Patient feels improved compared to yesterday. Less pain and swelling. She was able to walk to the bathroom without assistance. Physical Exam Physical Exam: There is minimal diffuse tenderness to palpation. No redness or induration. Perhaps a trace or small effusion within the knee. She is able to do a leg lift today and fully straighten her knee and bend to about 90 degrees. Results & Data Vital Signs (Past 12 Hours) Vital Signs Temp Pulse Resp BP Pulse Ox O2 Del Method 07/01/23 07:33 36.5 C 68 16 115/81 100 Room Air Laboratory Results 07/01/23 06/30/23 Range/Units 06:26 15:35 WBC 7.46 (4.8-10.8) K/ul RBC 4.84 (4.20-5.40) M/uL Hgb 13.8 (12.0-16.0) g/dl Hct 41.5 (37.0-47.0) % MCV 85.7 (80.0-100.0) fL MCH 28.5 (25.0-34.0) pg MCHC 33.3 (32.0-36.0) g/dL RDW Std Deviation 38.1 (36.4-46.3) fL RDW Coeff of Lisa 12.3 (11.5-14.5) % Plt Count 234 (130-400) K/uL MPV 10.4 (9.4-12.4) fL Sodium 138 (136-145) mmol/L Potassium 4.0 (3.5-5.1) mmol/L Chloride 106 (98-107) mmol/L Carbon Dioxide 27 (21-32) mmol/L Anion Gap 5 (3-11) BUN 20 (6-23) mg/dl Creatinine 0.58 L (0.6-1.2) mg/dl Est Cr Clr Drug Dosing 128.0 ml/min Est GFR ( Amer) 119.4 ml/min Est GFR (Non-Af Amer) 103.0 ml/min BUN/Creatinine Ratio 34.5 H (10-20) Glucose 107 H (70-99(Fasting)) mg/dl Calcium 9.9 (8.6-10.3) mg/dl Fluid Comment Synovial Source Right Knee Synovial Color Yellow Synovial Appearance Cloudy Synovial WBC (Auto) 65911 H (0-200) /ul Synovial RBC (Auto) 2000 /uL Synovial Polynuclear % 92.8 % Synovial Mononuclear % 7.2 % Synovial Crystals Pending
[2023-07-01 19:52] LABS: Lyme DNA PCR CSF or Synovial Not Detected (Not Detected); Lyme DNA Source SYNOVIAL FLUID
== END 2023-07-01 12:45 | disposition home or self-care (01) | DRG 554 ==
LOC: ED 22:47 → 3W 06-29 05:11 → SUATTDRO 06-29 05:11 → 3W 06-29 08:44